=== PATIENT | female | born 1960 | race Caucasian/White ===

== ENCOUNTER 2024-12-21 10:41 | Emergency (ER) | payer BC, SELFPAY ==
[2024-12-21] VITALS (8 sets, daily range): BP systolic 113–139; BP diastolic 69–100; BMI 18.1
[2024-12-21 11:24] LABS: Urine Albumin Trace (Neg - Trace); Urine Bilirubin Negative (Negative); Urine Character Clear (Clear); Urine Color Yellow; Urine Glucose Negative (Negative); Urine Ketone Negative (Negative); Urine Leukocyte Trace (Negative); Urine Nitrite Negative (Negative); Urine Occult Blood Trace (Negative); Urine Specific Gravity 1.015 (<1.030); Urine Urobilinogen Negative (Neg - 1+)
--- NOTE | 2024-12-21 11:28 | ED.GENMED ---
History of Present Illness
General
Chief Complaint: Allergic Reaction
Source: patient
Exam Limitations: none
Time Seen by Provider: 12/21/24 11:11
Nursing documentation reviewed up to this point in time: agreed with
History of Present Illness
History of Present Illness:
64-year-old female lives at [facility], where she is rehabbing from back surgery has rheumatoid arthritis started new biologic shot in her abdomen yesterday, fairly soon after that developed a red rash flushing fast heart rate headache nausea
rash persist today but is overall feeling better no abdominal pain no lip swelling,
Past History
Past History
ED Past Medical History: COPD, HTN, Hyperthyroidism and Other
ED Past Surgical History: , Orthopedic and Other
Social History
Tobacco: Former smoker
Alcohol: None
Drug: None
Living: alone
Employment: Retired
Review of Systems
Review of Systems
All Other Systems: Not applicable
Constitutional: Denies fever or fatigue
EENT: Reports no symptoms
Respiratory: Denies cough or trouble breathing
Cardiac: Reports palpitations; Denies chest pain
ABD/GI: Reports nausea; Denies abdominal pain
Skin: Reports rash; Denies itching
Neurological: Reports headache
Endocrine: Reports no symptoms
Hematologic/Lymphatic: Reports no symptoms
Phy Exam
Physical Exam
Physical Exam:
Physical Exam
General: 64 female flushed, nontoxic normal voice
Neck: No tongue swelling
Heart: Tachycardia
Lungs: no acute respiratory distress. clear bilaterally
Abdomen: Not tender
Neuro: alert and oriented. no focal neurological deficits
Skin: Red raised rash face trunk arms
Psychiatric: well kept. interactive and cooperative
Extremities: no edema.
Course
Orders/Labs/Results
Orders:
Orders
12/21/24 10:59
Electrocardiogram (*1) Urgent
Reason for Study: Chest Pain
Cardiac Monitoring- Treatment ONCE
EKG- Treatment ONCE
IV Insert/Care/Rem.- Treatment PRN
O2 Therapy [RESP] Urgent
Titrate/Wean O2 to maintain O2 sat greater than (%): 90
Special Instructions: Maintain sats >/=90%
Pulse Ox/spot Check [RESP] Urgent
Quantity: 1
Special Instructions: ON ROOM AIR
12/21/24 11:06
Basic Metabolic Panel Urgent
Complete Blood Count/With Diff Urgent
Digoxin Urgent
Comment: ADD ON
Troponin I Urgent
12/21/24 11:10
Urinalysis Reflex To Culture Urgent
Date Specimen was Collected: 12/21/24
Time Specimen was Collected: 11:09
Urine Microscopic Reflex Cult Urgent
12/21/24 11:25
Dexamethasone Sod Phosphate [Decadron] 10 mg IV NOW STA
Diphenhydramine [Benadryl] 25 mg IV NOW STA
Famotidine [Pepcid] 20 mg IV NOW STA
12/21/24 11:27
0.9% Sodium Chloride 1000 ml [Nss] 1,000 ml IV BOLUS
12/21/24 11:28
Add On- LAB Urgent
Tests Added?: digoxin
Abnormal Lab Results
12/21/24 12/21/24
11:06 11:10
WBC 19.1 H 10^3/uL
(4.8-10.8)
MCHC 32.7 L g/dL
(33.0-37.0)
RDW 17.8 H %
(11.5-14.5)
Abs Immat Gran (auto) 2.2 H 10^3/uL
(0-0.05)
Absolute Neuts (auto) 15.7 H 10^3/uL
(1.4-6.5)
Absolute Lymphs (auto) 0.4 L 10^3/uL
(1.2-3.4)
Absolute Monos (auto) 0.8 H 10^3/uL
(0.1-0.6)
Immature Gran % 11.3 H %
(0-0.5)
Neutrophils % 82.0 H %
(42.2-75.2)
Lymphocytes % 2.3 L %
(20.5-51.1)
Chloride 95 L mmol/L
(98-107)
BUN 31 H mg/dl
(7-17)
Creatinine 0.4 L mg/dL
(0.6-1.0)
Glucose 159 H mg/dl
(70-99)
Calcium 8.0 L mg/dl
(8.4-10.2)
Ur Occult Blood Reflex Trace A
(Negative)
Leukocyte Esterase Rfl Trace A
(Negative)
Urine RBC 3-6 A /HPF
(0-2)
12/21/24 11:06
12/21/24 12:27
Vital Signs
Initial and Last Documented VS:
Initial Vital Signs
Temp Pulse Resp BP Pulse Ox
98.2 F 126 18 132/83 96
12/21/24 10:45 12/21/24 10:45 12/21/24 10:45 12/21/24 10:45 12/21/24 10:45
Last Documented Vital Signs
Temp Pulse Resp BP Pulse Ox
98.2 F 107 16 135/82 96
12/21/24 10:45 12/21/24 12:20 12/21/24 12:15 12/21/24 12:00 12/21/24 12:15
MDM/Problems Addressed
Differential Diagnosis Includes:
Hypersensitivity allergic reaction medication reaction idiopathic
MDM/Problems Addressed:
Rash
Chronic conditions affecting care:
Rheumatoid arthritis
Acute Exacerbation and/or Progression of Chronic Illness:
Rheumatoid arthritis
*Pulse Oximetry
Patient hypoxic: no
*EKG
Interpreted by ED Provider?: Yes
Interpretation: abnormal
Comparison EKG: no comparison EKG present
Heart Rate: 130
Rate: tachycardiac
Rhythm: sinus
Ischemia: non-specific ST changes
*Tractor Trailer Driver Interpretation
Rate: tachycardiac
Interpretation: abnormal
Heart Rate: 130
Rhythm: sinus
*Critical Care Note
Total Time (30-74mins, 75-104mins- exclusive of procedures): 6
Update Note
Update Note:
Update presumed allergic reaction greater than 12 hours old, fairly asymptomatic at this point we will give some steroids Benadryl H1 and H2 rachel touch base with pharmacy to update her allergies suspect she should not get the medication again
Update patient feeling better
ED Attending Note
-
Portions of this chart may have been created with voice recognition software.� Occasional wrong word or��sound alike� substitutions may have occurred due to the inherent limitations of voice recognition software.
Discharge Plan
Departure
Patient Disposition: Home (Routine Discharge)
Date of Disposition: 12/21/24
Time of Disposition: 12:46
Patient with high blood pressure during this ER visit?: No
Condition: Good
Discharge Problem:
Adverse effect of drug
Instructions: Adverse Drug Reactions, Adult (DC)
Prescriptions:
New
diphenhydramine HCl [Allergy Medication] 25 mg capsule
25 mg PO TID PRN (Reason: allergy symptoms) Qty: 20 0RF
No Action
prednisone 5 mg tablet
5 mg PO BID
tramadol 50 mg tablet
100 mg PO BID
potassium chloride 20 mEq tablet extended release
20 meq PO DAILY
ibuprofen 200 mg Tablet
200 mg PO Q6H PRN (Reason: mild pain)
nystatin 100,000 unit/mL Suspension
5 ml PO QID 10 Days Qty: 200 0RF
digoxin 250 mcg (0.25 mg) Tablet
250 mcg PO NOON 30 Days Qty: 30 0RF
pantoprazole 40 mg Tablet,Delayed Release (Dr/Ec)
40 mg PO DAILY 30 Days Qty: 30 0RF
metoprolol succinate 25 mg Tablet Extended Release 24 Hr
25 mg PO DAILY 30 Days Qty: 30 0RF
cefdinir 300 mg Capsule
300 mg PO Q12 5 Days Qty: 10 0RF
levothyroxine 112 mcg Tablet
112 mcg PO DAILY AT 0700 30 Days Qty: 30 0RF
white petrolatum [Hydrophor] 42 % Ointment
1 applic topical BIDPRN PRN (Reason: itching sites) 30 Days Qty: 100 0RF
triamcinolone acetonide 0.1 % Cream
1 applic topical BID 30 Days Qty: 1 0RF
hydrocodone-acetaminophen 5-300 mg tablet
1 tab PO Q4H PRN (Reason: pain) Qty: 20 0RF
Referrals:
Daniel Manning DO [Family Provider] - Next open appointment
Activity Restrictions/Additional Instructions:
Follow-up with your commercial agent and primary care provider
You should not receive the biologic medication again they gave you the reaction
Interventions
Interventions:
*Risk Screen - Suicide Last Done: 12/21/24 10:45
*General Assessment Last Done: 12/21/24 10:45
*Neglect/Abuse Screening Last Done: 12/21/24 10:45
ED- Fall Risk Assessment Last Done: 12/21/24 11:02
*ED COVID-19 Vaccine History Last Done: 12/21/24 11:01
ED- Cardiac Assessment Last Done: 12/21/24 11:02
ED- Pulmonary Assessment Last Done: 12/21/24 11:03
ED-Skin Assessment Last Done: 12/21/24 11:04
Discharge Date and Time
Print Language: SCOTTISH
[2024-12-21 11:38] LABS: Hematocrit 40.1 % (37.0-47.0); Hemoglobin 13.1 g/dL (12.0-16.0); Mean Corp Hgb Conc. 32.7 g/dL (33.0-37.0); Mean Corpuscular Volume 88.7 fL (81.0-99.0); Mean Platelet Volume 8.9 fL (7.4-10.4); Platelet Count 381 10^3/uL (130-400); Red Blood Cell Count 4.52 10^6/uL (4.20-5.40); Red Cell Dist. Width 17.8 % (11.5-14.5); White Blood Cell Count 19.1 10^3/uL (4.8-10.8)
[2024-12-21] MEDS: DECADRON 10 MG IV (11:41)
[2024-12-21] MEDS: PEPCID 20 MG IV (11:41)
[2024-12-21] MEDS: BENADRYL 25 MG IV (11:41)
[2024-12-21] MEDS: NSS 1000 IV (11:41)
[2024-12-21 11:45] LABS: Blood Urea Nitrogen 31 mg/dl (7-17); Carbon Dioxide 30 mmol/L (22-30); Chloride 95 mmol/L (98-107); Estimated Creatinine Clearance 70 ml/min; Glucose 159 mg/dl (70-99); Sodium 136 mmol/L (135-145); eGFR > 60.00
[2024-12-21 11:49] LABS: Troponin I 0.016 ng/ml
[2024-12-21 12:01] LABS: Urine Squamous Cell >30 /LPF (Few)
[2024-12-21 12:02] LABS: Urine Amorphous Seen
[2024-12-21 12:07] LABS: % Basophils 0.2 % (0-2); % Immature Granulocytes 11.3 % (0-0.5); % Lymphocytes 2.3 % (20.5-51.1); % Monocytes 4.2 % (1.7-9.3); Absolute Immature Granulocytes 2.2 10^3/uL (0-0.05); Absolute Lymphocytes 0.4 10^3/uL (1.2-3.4); Absolute Monocytes 0.8 10^3/uL (0.1-0.6); Absolute Neutrophils 15.7 10^3/uL (1.4-6.5); Nucleated Red Blood Cells % 0 %
[2024-12-21 12:55] LABS: Digoxin < 0.4 ng/ml (0.8-2.0)
[2024-12-21] MEDS: TYLENOL 650 MG PO (15:42)
== END 2024-12-21 19:01 | disposition home or self-care (01) ==
LOC: EMR 10:41
PROVIDERS: EMERGENCY PHYSICIAN Emergency Medicine; FAMILY PHYSICIAN Family Medicine
DX: T50.995A Adverse effect of other drugs, medicaments and biological substances, initial encounter (principal); L27.0 Generalized skin eruption due to drugs and medicaments taken internally; X58.XXXA Exposure to other specified factors, initial encounter; J44.9 Chronic obstructive pulmonary disease, unspecified; M06.9 Rheumatoid arthritis, unspecified; I10 Essential (primary) hypertension; Z87.891 Personal history of nicotine dependence
CPT/HCPCS: 96374; 96375; 96361; 99284; 80048; 80162; 81003; 81015; 84484; 85025; 93005

== ENCOUNTER 2024-12-23 23:11 | Inpatient (IN) | payer BC, MEDICARE, SELFPAY ==
[2024-12-23] VITALS (7 sets, daily range): BP systolic 126–159; BP diastolic 85–106
[2024-12-23 15:36] LABS: Lactic Acid 2.8 mmol/L (0.7-2.0)
[2024-12-23 15:44] LABS: ALT (SGPT) 56 U/L (0-35); AST (SGOT) 52 U/L (14-36); Albumin 3.4 g/dl (3.5-5.0); Alkaline Phosphatase 101 U/L (38-126); Blood Urea Nitrogen 28 mg/dl (7-17); Calcium 7.8 mg/dl (8.4-10.2); Carbon Dioxide 31 mmol/L (22-30); Chloride 99 mmol/L (98-107); Estimated Creatinine Clearance 75 ml/min; Glucose 116 mg/dl (70-99); Potassium 4.4 mmol/L (3.5-5.1); Sodium 137 mmol/L (135-145); Total Bilirubin 0.8 mg/dl (0.2-1.3); Total Protein 5.8 g/dl (6.3-8.2); eGFR > 60.00
[2024-12-23 15:59] LABS: % Basophils 0.4 % (0-2); % Immature Granulocytes 7.4 % (0-0.5); % Lymphocytes 1.7 % (20.5-51.1); % Monocytes 3.9 % (1.7-9.3); % Neutrophils 86.6 % (42.2-75.2); Absolute Basophils 0.1 10^3/uL (0-0.2); Absolute Immature Granulocytes 1.3 10^3/uL (0-0.05); Absolute Lymphocytes 0.3 10^3/uL (1.2-3.4); Absolute Monocytes 0.7 10^3/uL (0.1-0.6); Absolute Neutrophils 14.6 10^3/uL (1.4-6.5); Hematocrit 34.9 % (37.0-47.0); Hemoglobin 11.6 g/dL (12.0-16.0); Mean Corp Hgb Conc. 33.2 g/dL (33.0-37.0); Mean Corpuscular Hgb 29.5 pg (27.0-31.0); Mean Corpuscular Volume 88.8 fL (81.0-99.0); Mean Platelet Volume 9.1 fL (7.4-10.4); Nucleated Red Blood Cells % 0.1 %; Platelet Count 272 10^3/uL (130-400); Red Blood Cell Count 3.93 10^6/uL (4.20-5.40); Red Cell Dist. Width 17.3 % (11.5-14.5); White Blood Cell Count 16.8 10^3/uL (4.8-10.8)
[2024-12-23] MEDS: ULTRAM 50 MG PO (16:12)
--- NOTE | 2024-12-23 19:11 | ED.GENMED ---
History of Present Illness
<Dave Armas DO - Last Filed: 12/23/24 19:11>
General
Chief Complaint: Weakness
Time Seen by Provider: 12/23/24 14:39
<Jaquan Shay Jr., PA-C - Last Filed: 12/24/24 08:09>
General
Source: patient and alf
Exam Limitations: none
Nursing documentation reviewed up to this point in time: agreed with
History of Present Illness
History of Present Illness:
64-year-old female presenting to the emergency department today with concerns of feeling shaky weak and sleepy throughout the morning. Has had some stomach distention and some upper abdominal pain to the left upper right upper quadrant. Of note
patient recently was here for potential allergic reaction to her new biologic medications restarted on 2 days ago was treated as an allergy. That seemingly has been improved. Initially she was noted to have some shortness claims she does
chronically have shortness of breath due to vocal cord issues denies significant changes acutely.
Past History
<DO Naila Martinez Last Filed: 12/23/24 19:11>
Past History
ED Past Medical History: COPD, HTN, Hyperthyroidism and Other
ED Past Surgical History: , Orthopedic and Other
Social History
Tobacco: Former smoker
Alcohol: None
Drug: None
Living: alone
Employment: Retired
Review of Systems
<Jaquan Shay Jr., PA-C - Last Filed: 12/24/24 08:09>
Review of Systems
Allergies reviewed?: Yes
All Other Systems: ROS reviewed and negative except as documented in HPI and ROS
Phy Exam
<Jaquan Shay Jr., PA-C - Last Filed: 12/24/24 08:09>
Physical Exam
Physical Exam:
GENERAL: Alert , in no apparent distress
EYE: pupils equal and reactive
NECK: Supple, no significant adenopathy.
ENT: o/p clr, mmm.
CARDIAC: Regular rate and rhythm .
LUNGS: Clear breath sounds bilaterally, no acute respiratory distress, no wheezes/rales/rhonchi
ABDOMEN: Soft, without focal tenderness, no r/g, no cvat
NEUROLOGICAL: Alert and oriented, no focal neuro deficits
SKIN: Warm and dry, skin intact.
MUSCULOSKELETAL: No edema, well perfused.
PSYCH: Normal and appropriate interaction.
Course
<Dave Armas, DO - Last Filed: 12/23/24 19:11>
Orders/Labs/Results
Orders:
Orders
12/23/24 14:59
EKG [Electrocardiogram (*1)] Urgent
Reason for Study: Fatigue / Weakness
CT Abd/Pel (IV only)-DH only Urgent
Comment:
Reason For Exam: abd bloating pain to left side
EKG- Treatment ONCE
12/23/24 15:14
Complete Blood Count/With Diff Urgent
Comprehensive Metabolic Panel Urgent
Lactic Acid Urgent
12/23/24 16:07
Tramadol HCl [Ultram] 50 mg PO NOW STA
12/23/24 18:49
0.9% Sodium Chloride 1000 ml [Nss] 1,000 ml IV BOLUS
12/23/24 19:38
Blood Culture Q30M
ALBERTO Source: Blood/Venous
Specimen Description:
12/23/24 19:39
Cefepime HCl [Maxipime] 2,000 mg IV NOW STA
12/23/24 19:46
Blood Culture Q30M
ALBERTO Source: Blood/Venous
Specimen Description:
12/23/24 19:49
Sterile Water [Sterile Water For Injection] 10 ml .ROUTE .[facility]
12/23/24 20:13
Vancomycin [Vancocin] 1,250 mg 0.9% Sodium Chloride 250 ml [Nss] 250 ml IV NOW
12/23/24 20:54
Lactate Level [Lactic Acid] Urgent
Urinalysis Reflex To Culture Urgent
Date Specimen was Collected: 12/23/24
Time Specimen was Collected: 20:47
Urine Microscopic Reflex Cult Urgent
12/23/24 22:24
Admit/Transfer Patient As Directed
Co-Sign Provider:
Level of Care: Inpatient admission
Assign to:: Telemetry
Physician / Group: warren
Diagnosis: pneumonia
Reason for Telemetry: Arrhythmia
Date to Stop Telemetry: 12/26/24
Time to Stop Telemetry: 11:00
Reason for Hospitalization: pneumonia
Expected length of stay greater than two midnights?: Yes
ELOS- Estimated Length of Stay in days: 2
I certify the patient meets the requirements for IP care: Yes
PRN Pain Medication Management As Directed
May give lesser potent ordered pain med per pt: Yes
preference::
Protocol:: Medication orders for pain may be administered in a
manner that supports deferring to patient preference
when the pt is:
- Requesting an ordered lesser potent pain medication.
Least to most potent pain medications are defined
as: acetaminophen < NSAID < tramadol < opioids
(morphine, oxycodone, hydromorphone).
- Requesting a lesser dose of the same medication IF
ORDERED.
- Requesting a less intrusive route of administration
if both routes are prescribed by the provider (PO <
IV).
12/23/24 22:25
Code Status As Directed
Resuscitation Status: Full Code
12/23/24 22:34
CR Chest - 2 Views Urgent
Comment:
Reason For Exam: sweats
12/23/24 22:36
Troponin I Urgent
12/23/24 22:38
COVID-19 Antigen Urgent
Source: Nasal Swab
Influenza A+B Rapid Molecular Urgent
ALBERTO Source: Nasal Swab
Specimen Description:
12/24/24 00:18
0.9% Sodium Chloride 1000 ml [Nss] 1,000 ml IV 80 mls/hr
Acetaminophen [Tylenol] 650 mg PO Q4HPRN PRN
Albuterol Nebs [Ventolin Nebules] 2.5 mg INH R Q4HPRN PRN
Bisacodyl [Dulcolax] 10 mg RECTAL DAILYPRN PRN
Diazepam [Valium] 2 mg PO Q8HPRN PRN
Magnesium Hydroxide [Milk of Magnesia] 30 ml PO DAILYPRN PRN
Ondansetron Injectable [Zofran] 4 mg IV Q6HPRN PRN
Phosphate Enema [Fleet Phosphate Enema-Adult] 118 ml RECTAL DAILYPRN PRN
Tizanidine [Zanaflex] 4 mg PO DAILYPRN PRN
Tramadol HCl [Ultram] 50 mg PO Q6HPRN PRN
methocarbamol 500 mg PO Q8HPRN PRN
12/24/24 00:18
Echo 2D MMode Color/Doppler Routine
Reason for Study: pericardial effuson
Activity As Directed
Activity Level: As Tolerated
Vital Signs As Directed
Frequency: Per unit guidelines
DX Deep Vein Thrombosis Video Routine
12/24/24 02:00
CefTRIAXone [Rocephin] 1,000 mg IV Q24H
12/24/24 02:54
Oxycodone [Roxicodone] 5 mg PO Q4H PRN
12/24/24 04:00
Doxycycline Hyclate [Vibramycin] 100 mg 0.9% Sodium Chloride 250 ml [Nss] 250 ml IV Q12H
12/24/24 Breakfast
Regular
At Your Request: Full Participation
Does patient need a safe tray?: No
12/24/24 07:32
Complete Blood Count/With Diff IN AM
Comprehensive Metabolic Panel IN AM
12/24/24 08:00
Calcium Carbonate [Oscal Chandra 500] 500 mg PO DAILY
Gabapentin [Neurontin] 300 mg PO TID
Heparin 5,000 units SC Q12
Levothyroxine [Synthroid] 100 mcg PO DAILY
Lidocaine [Lidocaine 4% Patch] 2 patch TOPICAL DAILY
Apply Lidocaine patch(s) to:: left ri/aabdomen
Metoprolol [Lopressor] 50 mg PO BID
Nicotine [Nicoderm Transdermal] 21 mg TRANSDERM DAILY
Potassium Chloride [KCl] 20 meq PO DAILY
Prednisone [Deltasone] 20 mg PO DAILY
lubiprostone 8 mcg PO DAILY
12/24/24 22:00
Docusate W/Senna [Senokot-S] 1 tablet PO HS
12/25/24 08:00
Alendronate Sodium [Fosamax] 70 mg PO MO
12/26/24 11:00
DC Protocol for Telemetry ONCE
Abnormal Lab Results
12/23/24 12/23/24
15:14 20:54
WBC 16.8 H 10^3/uL
(4.8-10.8)
RBC 3.93 L 10^6/uL
(4.20-5.40)
Hgb 11.6 L g/dL
(12.0-16.0)
Hct 34.9 L %
(37.0-47.0)
RDW 17.3 H %
(11.5-14.5)
Abs Immat Gran (auto) 1.3 H 10^3/uL
(0-0.05)
Absolute Neuts (auto) 14.6 H 10^3/uL
(1.4-6.5)
Absolute Lymphs (auto) 0.3 L 10^3/uL
(1.2-3.4)
Absolute Monos (auto) 0.7 H 10^3/uL
(0.1-0.6)
Immature Gran % 7.4 H %
(0-0.5)
Neutrophils % 86.6 H %
(42.2-75.2)
Lymphocytes % 1.7 L %
(20.5-51.1)
Carbon Dioxide 31 H mmol/L
(22-30)
BUN 28 H mg/dl
(7-17)
Creatinine 0.3 L mg/dL
(0.6-1.0)
Glucose 116 H mg/dl
(70-99)
Lactic Acid 2.8 H mmol/L 2.8 H mmol/L
(0.7-2.0) (0.7-2.0)
Calcium 7.8 L mg/dl
(8.4-10.2)
AST 52 H U/L
(14-36)
ALT 56 H U/L
(0-35)
Total Protein 5.8 L g/dl
(6.3-8.2)
Albumin 3.4 L g/dl
(3.5-5.0)
Ur Occult Blood Reflex Trace A
(Negative)
Urine Bacteria (Reflex) Few A
(Negative)
12/23/24 15:14
12/23/24 15:14
Vital Signs
Initial and Last Documented VS:
Initial Vital Signs
Temp Pulse Resp BP Pulse Ox
98.6 F 83 18 134/92 97
12/23/24 14:30 12/23/24 14:30 12/23/24 14:30 12/23/24 14:30 12/23/24 14:30
Last Documented Vital Signs
Temp Pulse Resp BP Pulse Ox
97.9 F 93 18 130/87 100
12/24/24 03:55 12/24/24 03:55 12/24/24 03:55 12/24/24 03:55 12/24/24 03:55
<Jaquan Shay Jr., PA-C - Last Filed: 12/24/24 08:09>
Orders/Labs/Results
Orders:
Orders
12/23/24 14:59
EKG [Electrocardiogram (*1)] Urgent
Reason for Study: Fatigue / Weakness
CT Abd/Pel (IV only)-DH only Urgent
Comment:
Reason For Exam: abd bloating pain to left side
EKG- Treatment ONCE
12/23/24 15:14
Complete Blood Count/With Diff Urgent
Comprehensive Metabolic Panel Urgent
Lactic Acid Urgent
12/23/24 16:07
Tramadol HCl [Ultram] 50 mg PO NOW STA
12/23/24 18:49
0.9% Sodium Chloride 1000 ml [Nss] 1,000 ml IV BOLUS
12/23/24 19:38
Blood Culture Q30M
ALBERTO Source: Blood/Venous
Specimen Description:
12/23/24 19:39
Cefepime HCl [Maxipime] 2,000 mg IV NOW STA
12/23/24 19:46
Blood Culture Q30M
ALBERTO Source: Blood/Venous
Specimen Description:
12/23/24 19:49
Sterile Water [Sterile Water For Injection] 10 ml .ROUTE .[facility]
12/23/24 20:13
Vancomycin [Vancocin] 1,250 mg 0.9% Sodium Chloride 250 ml [Nss] 250 ml IV NOW
12/23/24 20:54
Lactate Level [Lactic Acid] Urgent
Urinalysis Reflex To Culture Urgent
Date Specimen was Collected: 12/23/24
Time Specimen was Collected: 20:47
Urine Microscopic Reflex Cult Urgent
12/23/24 22:24
Admit/Transfer Patient As Directed
Co-Sign Provider:
Level of Care: Inpatient admission
Assign to:: Telemetry
Physician / Group: warren
Diagnosis: pneumonia
Reason for Telemetry: Arrhythmia
Date to Stop Telemetry: 12/26/24
Time to Stop Telemetry: 11:00
Reason for Hospitalization: pneumonia
Expected length of stay greater than two midnights?: Yes
ELOS- Estimated Length of Stay in days: 2
I certify the patient meets the requirements for IP care: Yes
PRN Pain Medication Management As Directed
May give lesser potent ordered pain med per pt: Yes
preference::
Protocol:: Medication orders for pain may be administered in a
manner that supports deferring to patient preference
when the pt is:
- Requesting an ordered lesser potent pain medication.
Least to most potent pain medications are defined
as: acetaminophen < NSAID < tramadol < opioids
(morphine, oxycodone, hydromorphone).
- Requesting a lesser dose of the same medication IF
ORDERED.
- Requesting a less intrusive route of administration
if both routes are prescribed by the provider (PO <
IV).
12/23/24 22:25
Code Status As Directed
Resuscitation Status: Full Code
12/23/24 22:34
CR Chest - 2 Views Urgent
Comment:
Reason For Exam: sweats
12/23/24 22:36
Troponin I Urgent
12/23/24 22:38
COVID-19 Antigen Urgent
Source: Nasal Swab
Influenza A+B Rapid Molecular Urgent
ALBERTO Source: Nasal Swab
Specimen Description:
12/24/24 00:18
0.9% Sodium Chloride 1000 ml [Nss] 1,000 ml IV 80 mls/hr
Acetaminophen [Tylenol] 650 mg PO Q4HPRN PRN
Albuterol Nebs [Ventolin Nebules] 2.5 mg INH R Q4HPRN PRN
Bisacodyl [Dulcolax] 10 mg RECTAL DAILYPRN PRN
Diazepam [Valium] 2 mg PO Q8HPRN PRN
Magnesium Hydroxide [Milk of Magnesia] 30 ml PO DAILYPRN PRN
Ondansetron Injectable [Zofran] 4 mg IV Q6HPRN PRN
Phosphate Enema [Fleet Phosphate Enema-Adult] 118 ml RECTAL DAILYPRN PRN
Tizanidine [Zanaflex] 4 mg PO DAILYPRN PRN
Tramadol HCl [Ultram] 50 mg PO Q6HPRN PRN
methocarbamol 500 mg PO Q8HPRN PRN
12/24/24 00:18
Echo 2D MMode Color/Doppler Routine
Reason for Study: pericardial effuson
Activity As Directed
Activity Level: As Tolerated
Vital Signs As Directed
Frequency: Per unit guidelines
DX Deep Vein Thrombosis Video Routine
12/24/24 02:00
CefTRIAXone [Rocephin] 1,000 mg IV Q24H
12/24/24 02:54
Oxycodone [Roxicodone] 5 mg PO Q4H PRN
12/24/24 04:00
Doxycycline Hyclate [Vibramycin] 100 mg 0.9% Sodium Chloride 250 ml [Nss] 250 ml IV Q12H
12/24/24 Breakfast
Regular
At Your Request: Full Participation
Does patient need a safe tray?: No
12/24/24 07:32
Complete Blood Count/With Diff IN AM
Comprehensive Metabolic Panel IN AM
12/24/24 08:00
Calcium Carbonate [Oscal Chandra 500] 500 mg PO DAILY
Gabapentin [Neurontin] 300 mg PO TID
Heparin 5,000 units SC Q12
Levothyroxine [Synthroid] 100 mcg PO DAILY
Lidocaine [Lidocaine 4% Patch] 2 patch TOPICAL DAILY
Apply Lidocaine patch(s) to:: left ri/aabdomen
Metoprolol [Lopressor] 50 mg PO BID
Nicotine [Nicoderm Transdermal] 21 mg TRANSDERM DAILY
Potassium Chloride [KCl] 20 meq PO DAILY
Prednisone [Deltasone] 20 mg PO DAILY
lubiprostone 8 mcg PO DAILY
12/24/24 22:00
Docusate W/Senna [Senokot-S] 1 tablet PO HS
12/25/24 08:00
Alendronate Sodium [Fosamax] 70 mg PO MO
12/26/24 11:00
DC Protocol for Telemetry ONCE
Abnormal Lab Results
12/23/24 12/23/24
15:14 20:54
WBC 16.8 H 10^3/uL
(4.8-10.8)
RBC 3.93 L 10^6/uL
(4.20-5.40)
Hgb 11.6 L g/dL
(12.0-16.0)
Hct 34.9 L %
(37.0-47.0)
RDW 17.3 H %
(11.5-14.5)
Abs Immat Gran (auto) 1.3 H 10^3/uL
(0-0.05)
Absolute Neuts (auto) 14.6 H 10^3/uL
(1.4-6.5)
Absolute Lymphs (auto) 0.3 L 10^3/uL
(1.2-3.4)
Absolute Monos (auto) 0.7 H 10^3/uL
(0.1-0.6)
Immature Gran % 7.4 H %
(0-0.5)
Neutrophils % 86.6 H %
(42.2-75.2)
Lymphocytes % 1.7 L %
(20.5-51.1)
Carbon Dioxide 31 H mmol/L
(22-30)
BUN 28 H mg/dl
(7-17)
Creatinine 0.3 L mg/dL
(0.6-1.0)
Glucose 116 H mg/dl
(70-99)
Lactic Acid 2.8 H mmol/L 2.8 H mmol/L
(0.7-2.0) (0.7-2.0)
Calcium 7.8 L mg/dl
(8.4-10.2)
AST 52 H U/L
(14-36)
ALT 56 H U/L
(0-35)
Total Protein 5.8 L g/dl
(6.3-8.2)
Albumin 3.4 L g/dl
(3.5-5.0)
Ur Occult Blood Reflex Trace A
(Negative)
Urine Bacteria (Reflex) Few A
(Negative)
12/23/24 15:14
12/23/24 15:14
Vital Signs
Initial and Last Documented VS:
Initial Vital Signs
Temp Pulse Resp BP Pulse Ox
98.6 F 83 18 134/92 97
12/23/24 14:30 12/23/24 14:30 12/23/24 14:30 12/23/24 14:30 12/23/24 14:30
Last Documented Vital Signs
Temp Pulse Resp BP Pulse Ox
97.9 F 93 18 130/87 100
12/24/24 03:55 12/24/24 03:55 12/24/24 03:55 12/24/24 03:55 12/24/24 03:55
<Jaquan Shay Jr., PA-C - Last Filed: 12/24/24 08:09>
MDM/Problems Addressed
MDM/Problems Addressed:
64-year-old female presenting to the emergency department with vague symptoms of generalized weakness fatigue over the past few days worsening significantly today. On arrival vital signs are normal patient no obvious distress does describe mainly
abdominal pain to the upper abdomen has white count of 16.8 with left shift has had some elevated numbers in the past unclear if this could be related to patient's recent steroid use. Patient also started a new biologic for rheumatoid arthritis 2
days ago she did have a potential allergic reaction was treated for this. Otherwise her lactic acid was elevated 2 point raise concern for potential underlying infectious etiology. CT scan of the abdomen pelvis was ordered. There was potential
consolidation consistent with pneumonia. Concerning patient's immunocompromise elevated lactic acid and generalized symptoms plan to start IV antibiotics and admit for cultures as well as further monitoring.
<Jaquan Shay Jr., PA-C - Last Filed: 12/24/24 08:09>
*Critical Care Note
Total Time (30-74mins, 75-104mins- exclusive of procedures): Not Applicable
ED Attending Note
<Dave Armas DO - Last Filed: 12/23/24 19:11>
ED Attending Note
I performed the substantive portion of visit, reviewed & personally made and approve the management plan that is documented in note by myself or ERINN.: Yes
-
Portions of this chart may have been created with voice recognition software.� Occasional wrong word or��sound alike� substitutions may have occurred due to the inherent limitations of voice recognition software.
Discharge Plan
Departure
Patient Disposition: Admit
Date of Disposition: 12/23/24
Time of Disposition: 21:57
Admit to: Telemetry
Admit to doctor: Alexis
Presentation/result/management discussed w/ accepting MD/DO: Hospitalist
Patient with high blood pressure during this ER visit?: No
Condition: Good
Covid-19: Not Applicable
Discharge Problem:
Pneumonia
Interventions
Interventions:
*Risk Screen - Suicide Last Done: 12/23/24 14:30
*General Assessment Last Done: 12/23/24 14:30
*Neglect/Abuse Screening Last Done: 12/23/24 14:30
ED- Fall Risk Assessment Last Done: 12/23/24 18:38
*ED COVID-19 Vaccine History Last Done: 12/23/24 18:38
*Nursing Disposition Last Done: 12/24/24 00:10
ED- Cardiac Assessment Last Done: 12/23/24 20:05
ED- Neurological Assessment Last Done: 12/23/24 20:05
ED- Pulmonary Assessment Last Done: 12/23/24 20:05
Discharge Date and Time
Discharge Date/Time: 12/24/24 00:10
[2024-12-23] MEDS: NSS 1000 IV (19:23)
[2024-12-23] MEDS: MAXIPIME 2000 MG IV (19:54)
--- NOTE | 2024-12-23 20:13 | EDRN ---
Called pharmacy for vancomycin. Per Gladys SYED, repeat lactic to be drawn after pt finishes 1L NS
[2024-12-23] MEDS: VANCOCIN 275 MG IV (20:54)
[2024-12-23 21:05] LABS: Urine Albumin Negative (Neg - Trace); Urine Bilirubin Negative (Negative); Urine Character Clear (Clear); Urine Color Straw; Urine Glucose Negative (Negative); Urine Ketone Negative (Negative); Urine Leukocyte Negative (Negative); Urine Nitrite Negative (Negative); Urine Occult Blood Trace (Negative); Urine Urobilinogen Negative (Neg - 1+)
[2024-12-23 21:11] LABS: Urine Bacteria Few (Negative); Urine Red Blood Cell 0-2 /HPF (0-2); Urine Squamous Cell 16-20 /LPF (Few)
[2024-12-23 21:14] LABS: Lactic Acid 2.8 mmol/L (0.7-2.0)
--- NOTE | 2024-12-23 22:31 | HPS.HSE ---
Addendum entered and electronically signed by Maria Luisa Rockwell MD 12/23/24 23:41:
Patient recently had back surgery on November 06. No new back pain. Incision site appears normal without redness or warmth.
Original Note:
Family Physician
-
Family Physician: Daniel Manning
Chief Complaint
-
sweats
History of Present Illness
64-year-old female past medical history of Takotsubo cardiomyopathy, HFrEF, esophageal candidiasis, rheumatoid arthritis, COPD, hypothyroidism, presenting with feeling of shakiness, weakness and flushing of the face which started this morning. She
denies any chest pain. She has chronic shortness of breath due to vocal cord dysfunction from prior neck surgery. Shortness of breath is at baseline. She denies nausea or vomiting. She denies constipation at this time
She had been complaining of abdominal bloating for the past month. She had been seeing GI who gave her Linzess for constipation without improvement. They could not find any source for her abdominal bloating.
For the past week she has been having pain in the area of her left rib radiating to her back. Pain was sharp and electric-like and only occurs with movement during physical therapy. She denies any such pain currently.
She came to the emergency room 2 days ago after receiving a new biologic injection for rheumatoid arthritis the day prior. She developed a red rash and flushing tachycardia and headache and nausea. She came to the emergency room and treated with
antihistamine and dexamethasone with improvement.
She is a former smoker. She denies alcohol use.
Medical History
Past Medical History
Past Medical History: Reports Other (Takotsubo cardiomyopathy, HFrEF, esophageal candidiasis, rheumatoid arthritis, COPD, hypothyroidism)
Past Surgical History: Reports Other (, Orthopedic and Other)
Social History
Tobacco: Former Smoker
Alcohol: None
Drug: None
Family History
Family History: Not pertinent
Allergies / Home Medications
Allergies reflects when Allergies were last updated in [facility].
Home Medications with original date entered in [facility]
Allergy/Medication List:
Allergies
Allergy/AdvReac Type Severity Reaction Status Date / Time
abaloparatide [From Tymlos] Allergy rash, Verified 12/23/24 14:35
tachycardia,
chest
tightness,
headache
Home Medications
potassium chloride 20 mEq tablet,extended release 20 meq PO DAILY Supplement 09/13/22
tramadol 50 mg tablet 50 mg PO Q6HPRN PRN moderate pain 09/13/22
acetaminophen 325 mg tablet 650 mg PO Q4HPRN PRN fever greater than 100/mild pain 12/23/24
albuterol sulfate 2.5 mg/3 mL (0.083 %) solution for nebulization 2.5 mg inhalation R Q4HPRN PRN sob 12/23/24
alendronate 70 mg tablet 70 mg PO MO 12/23/24
bisacodyl 10 mg rectal suppository (Dulcolax (bisacodyl)) 10 mg [place] DAILYPRN PRN if MOM ineffective after 24 hours 12/23/24
calcium carbonate 500 mg PO DAILY 12/23/24
diazepam 2 mg tablet 2 mg PO Q8HPRN PRN anxiety 12/23/24
furosemide 20 mg tablet 20 mg PO DAILY 12/23/24
gabapentin 300 mg capsule 300 mg PO TID 12/23/24
levothyroxine 100 mcg tablet 100 mcg PO DAILY 12/23/24
lidocaine 4 % topical patch 2 patch topical DAILY left side ribs and back 12/23/24
lubiprostone 8 mcg capsule 8 mcg PO DAILY 12/23/24
magnesium hydroxide 400 mg/5 mL oral suspension (Milk of Magnesia) 2,400 mg PO DAILYPRN PRN if no bm in 3 days 12/23/24
methocarbamol 500 mg tablet 500 mg PO Q8HPRN PRN muscle spasm 12/23/24
metoprolol tartrate 50 mg tablet 50 mg PO BID 12/23/24
nicotine 21 mg/24 hr daily transdermal patch 1 patch transdermal DAILY 12/23/24
oxycodone 5 mg capsule 5 mg PO Q4H PRN moderate/severe pain 12/23/24
prednisone 20 mg tablet 20 mg PO DAILY 12/23/24
sennosides 8.6 mg-docusate sodium 50 mg tablet (Senna with Docusate Sodium) 1 tab-cap PO HS 12/23/24
sodium phosphates 19 gram-7 gram/118 mL enema (Fleet Enema) 118 ml [place] DAILYPRN PRN if dulcolax ineffective after 24 hr 12/23/24
tizanidine 4 mg tablet 4 mg PO DAILYPRN PRN muscle spasm 12/23/24
Review of Systems
-
History Source: Patient
A 12 point ROS was completed and negative except as noted: Yes
Constitutional: Reports No Symptoms
EENT: Reports No Symptoms
Respiratory: Reports See HPI
Cardiac: Reports No Symptoms
Abdomen/GI: Reports See HPI
: Reports No Symptoms
Musculoskeletal: Reports No Symptoms
Skin: Reports No Symptoms
Neurological: Reports No Symptoms
Endocrine: Reports No Symptoms
Hematologic/Lymphatic: Reports No Symptoms
Psych: Reports No Symptoms
Physical Exam
Vital Signs
Vital Signs
Temp Pulse Resp BP Pulse Ox
97.9 F 77 12 159/97 97
12/23/24 19:26 12/23/24 22:09 12/23/24 22:00 12/23/24 22:09 12/23/24 21:00
Physical Exam
General: Well Developed, Well Nourished and No Apparent Distress
HEENT: NormoCephalic, Moist mucous membranes and Atraumatic
Respiratory: Clear
Cardiac: S1/S2 and Regular Rhythm; No Murmur or Rub
GI: Soft, Non Tender, Normal Bowel Sounds and Distended; No Organomegaly
Rectal: Deferred by Provider
Musculoskeletal: No Clubbing, No Cyanosis and No Edema
Skin: No Rash
Neuro: Nonfocal/grossly intact
Laboratory Results
-
12/23/24 15:14
12/23/24 15:14
Laboratory Results
Lactic Acid 2.8 mmol/L (0.7-2.0) H 12/23/24 20:54
Total Bilirubin 0.8 mg/dl (0.2-1.3) 12/23/24 15:14
AST 52 U/L (14-36) H 12/23/24 15:14
ALT 56 U/L (0-35) H 12/23/24 15:14
Alkaline Phosphatase 101 U/L (38-126) 12/23/24 15:14
Data Reviewed
-
Lab Data: Labs Reviewed by me
Old Records: Reviewed
Impression/Plan
-
IMPRESSION:
PLAN:
# Suspected Pneumonia
-Leukocytosis
-Lactic acid of 2.8 but clinically not quite septic
-CT abdomen pelvis shows right lower lobe opacification with air bronchograms, atelectasis versus pneumonia with tiny right pleural effusion, left lower lobe subsegmental atelectasis tiny left pleural effusion
-Check COVID and influenza
-Check chest x-ray
-Blood cultures pending
-IV fluids
-Given vancomycin/cefepime, switch to ceftriaxone/doxycycline
# Mild pericardial thickening versus pericardial effusion
-Clinically history not suggestive of pericarditis
-EKG shows normal sinus rhythm, LVH, possible left atrial enlargement
-Troponin pending
-Check echocardiogram
# Recent left abdomen/rib pain radiating to back
-Not present currently, only occurs with movement
-Seems to be musculoskeletal/costochondritis
-Continue lidocaine patch
# Chronic abdominal bloating unclear etiology
-Has been following up with GI with no improvement with Linzess
History of Takotsubo cardiomyopathy/HFrEF
-Hold Lasix
-Continue metoprolol
Chronic dyspnea secondary to vocal cord dysfunction from prior neck surgery
History of esophageal candidiasis
Rheumatoid arthritis
-Continue gabapentin, methocarbamol, tizanidine, tramadol
-Continue oxycodone
-Continue prednisone
COPD
Hypothyroidism
-Continue levothyroxine
Constipation
-Not currently constipated
-Continue lubiprostone
History of alcohol/Percocet overuse
Anxiety/depression
-Continue diazepam
Osteoporosis
-Continue alendronate
Former smoker
-Continue nicotine patch
Full code
DVT prophylaxis�heparin
Regular diet
[2024-12-23 22:58] LABS: COVID-19 Antigen Negative (Negative)
[2024-12-23 23:07] LABS: Troponin I < 0.012 ng/ml
[2024-12-24] VITALS (7 sets, daily range): BP systolic 114–159; BP diastolic 69–98; BMI 18.3
--- NOTE | 2024-12-24 01:06 | PTCARENOTE ---
Pt admitted to floor from ED. Ambulated to bed with assistx2. AAox3, VSS. NSR on the monitor. Oriented to room. Call varma within reach.
[2024-12-24] MEDS: ULTRAM 50 MG PO ×4 (01:15→21:03)
[2024-12-24] MEDS: STERILE WATER FOR INJECTION 10 ML IV (02:11)
[2024-12-24] MEDS: ROCEPHIN 1000 MG IV (02:11)
[2024-12-24] MEDS: NSS 1000 IV ×2 (03:30→21:02)
[2024-12-24] MEDS: VIBRAMYCIN 260 MG IV ×2 (03:40→16:05)
[2024-12-24 07:58] LABS: Lactic Acid 1.2 mmol/L (0.7-2.0)
[2024-12-24] MEDS: LIDOCAINE 4% PATCH 2 PATCH TOPICAL (08:22)
[2024-12-24] MEDS: KCL 20 MEQ PO (08:22)
[2024-12-24] MEDS: DELTASONE 20 MG PO (08:22)
[2024-12-24] MEDS: NEURONTIN 300 MG PO ×3 (08:22→21:03)
[2024-12-24] MEDS: OSCAL CAL 500 500 MG PO (08:22)
[2024-12-24] MEDS: HEPARIN 5000 UNITS SC ×2 (08:23→20:46)
[2024-12-24] MEDS: LOPRESSOR 50 MG PO ×2 (08:23→20:46)
[2024-12-24] MEDS: SYNTHROID 100 MCG PO (08:24)
[2024-12-24 08:30] LABS: ALT (SGPT) 65 U/L (0-35); AST (SGOT) 43 U/L (14-36); Albumin 3.5 g/dl (3.5-5.0); Alkaline Phosphatase 145 U/L (38-126); Blood Urea Nitrogen 20 mg/dl (7-17); Calcium 7.4 mg/dl (8.4-10.2); Carbon Dioxide 27 mmol/L (22-30); Chloride 99 mmol/L (98-107); Estimated Creatinine Clearance 70 ml/min; Glucose 61 mg/dl (70-99); Potassium 3.6 mmol/L (3.5-5.1); Sodium 135 mmol/L (135-145); Total Bilirubin 0.8 mg/dl (0.2-1.3); Total Protein 5.8 g/dl (6.3-8.2); eGFR > 60.00
[2024-12-24 09:04] LABS: Hemoglobin 12.2 g/dL (12.0-16.0); Mean Corp Hgb Conc. 33.9 g/dL (33.0-37.0); Mean Corpuscular Hgb 29.6 pg (27.0-31.0); Mean Corpuscular Volume 87.4 fL (81.0-99.0); Mean Platelet Volume 8.9 fL (7.4-10.4); Platelet Count 249 10^3/uL (130-400); Red Blood Cell Count 4.12 10^6/uL (4.20-5.40); Red Cell Dist. Width 17.7 % (11.5-14.5); White Blood Cell Count 16.2 10^3/uL (4.8-10.8)
[2024-12-24 09:58] LABS: % Basophils 0.7 % (0-2); % Eosinophils 0.2 % (0-6); % Immature Granulocytes 7.6 % (0-0.5); % Lymphocytes 7.6 % (20.5-51.1); % Monocytes 8.1 % (1.7-9.3); % Neutrophils 75.8 % (42.2-75.2); Absolute Basophils 0.1 10^3/uL (0-0.2); Absolute Immature Granulocytes 1.2 10^3/uL (0-0.05); Absolute Lymphocytes 1.2 10^3/uL (1.2-3.4); Absolute Monocytes 1.3 10^3/uL (0.1-0.6); Absolute Neutrophils 12.3 10^3/uL (1.4-6.5); Nucleated Red Blood Cells % 0 %
--- NOTE | 2024-12-24 12:26 | W.PN.HOSP.TC ---
Today's Communication/Plan
-
Continue antibiotics
Check procalcitonin
Check BNP
Check echocardiogram
Assessment / Plan
Assessment / Plan
#Nonspecific general feeling of unwell. Recent allergic reaction to new biological agent for RA.
With abnormal RLL opacity and leukocytosis - Suspected Pneumonia
-Leukocytosis which could be sec to infection vs steorids
-Lactic acid of 2.8 but clinically not quite septic
-CT abdomen pelvis shows right lower lobe opacification with air bronchograms, atelectasis versus pneumonia with tiny right pleural effusion, left lower lobe subsegmental atelectasis tiny left pleural effusion
-Neg COVID and influenza
- chest x-ray no acute cardiopulm diease
-Blood cultures pending
- CW ceftriaxone/doxycycline till cx data . Check procal
- Also check BNP with bilateral small effusions
# Mild pericardial thickening versus pericardial effusion
-Clinically history not suggestive of pericarditis
-EKG shows normal sinus rhythm, LVH, possible left atrial enlargement
-Troponin neg
-Check echocardiogram
# Recent left abdomen/rib pain radiating to back
-Not present currently, only occurs with movement
-Seems to be musculoskeletal/costochondritis
-Continue lidocaine patch
# Chronic abdominal bloating unclear etiology
-Has been following up with GI with no improvement with Linzess
History of Takotsubo cardiomyopathy/HFrEF
-Hold Lasix
-Continue metoprolol
Chronic dyspnea secondary to vocal cord dysfunction from prior neck surgery
History of esophageal candidiasis
Rheumatoid arthritis
-Continue gabapentin, methocarbamol, tizanidine, tramadol
-Continue oxycodone
-Continue prednisone
COPD
Hypothyroidism
-Continue levothyroxine
Constipation
-Not currently constipated
-Continue lubiprostone
History of alcohol/Percocet overuse
Anxiety/depression
-Continue diazepam
Osteoporosis
-Continue alendronate
Former smoker
-Continue nicotine patch
Full code
DVT prophylaxis�heparin
Regular diet
Anticipated Discharge: > 48 hours
Subjective/Interval History
-
Date of Service: December 24, 2024
Patient is known to have rheumatoid arthritis was Orencia for a while which stopped working so went on a new biologic agent this week on Wednesday and had a bad allergic reaction for which she came to the ER. She felt like heart was pounding ,she
was sweating and she had a rash. Got Benadryl and steroids and was discharged back to rehab where she is currently at.
Yesterday she was not feeling well again. She thought she had another rash from neck to the head but not itchy. Currently resolved. No rash anywhere else. Rehab people put on oxygen she felt better .she was not sure why she was sent. Rehab
center wanted her to get checked out.
She has always jerome cheeks from steroids. She also has a chronic shortness of breath from vocal cord dysfunction.
This morning she is not complaining of any specific symptoms. Denies any cough, fever or chills. No sore throat. No prior history of pneumonias. Denies history of prior cardiac disease.
Objective Data
-
Labs:
Laboratory Results
12/24/24
07:32
WBC 16.2 H
Hgb 12.2
Hct 36.0 L
Plt Count 249
Sodium 135
Potassium 3.6
Chloride 99
Carbon Dioxide 27
BUN 20 H
Creatinine 0.4 L
Glucose 61 L
Calcium 7.4 L
Total Bilirubin 0.8
AST 43 H
ALT 65 H
Alkaline Phosphatase 145 H
Vital Signs:
Vital Signs
Temp Pulse Resp BP Pulse Ox
97.7 F 84 16 114/79 94
12/24/24 11:36 12/24/24 11:36 12/24/24 11:36 12/24/24 11:36 12/24/24 11:36
I&O
12/23/24 12/24/24 12/25/24
06:59 06:59 06:59
Intake Total 490 / 490
Balance 490 / 490
Review of Systems
-
Respiratory: Reports Trouble Breathing (Chronic from vocal cord dysfunction)
Cardiac: Denies Chest Pain
Abdomen/GI: Denies Abdominal Pain, Nausea or Vomiting
Neuro: Denies Dizzy
Physical Exam
-
General: Comfortable
HEENT: Moist Mucous Membranes
Respiratory: Crackles (Bibasal) and Non Labored Respirations; Negative Wheezes or Accessory Resp Muscle Use
Cardiac: Regular Rhythm and S1/S2
GI: Soft, Nontender, Nondistended and Normal Bowel Sounds
Skin: Other (skin purpura in general from steroids); Negative Rash
Neuro: AO x 3 and No Motor Deficits; Negative Tremors
Psych: Calm; Negative Confused
Data Reviewed
-
Labs: Labs Reviewed by me
[2024-12-24 13:29] LABS: NT-proBNP 776 pg/ml
[2024-12-24 14:13] LABS: Procalcitonin < 0.05 ng/ml (0.0-0.25)
--- NOTE | 2024-12-24 15:39 | CM ---
Patient seen at bedside
IA completed
Dx: pneumonia
PMH: Takotsubo cardiomyopathy, HF, esophageal candidiasis, rheumatoid arthritis, COPD, hypothyroidism
Lives alone in a 3 story home, 2 steps to enter, flight to 2nd floor. States she was staying on 1st floor
Patient stated she had back surgery Nov [address] [facility]
States she was at the ED on Wed and treated for allergic reaction from RA injection & sent back to [facility]
PLOF: Independent, states does not use device
DME: Walker, cane, shower chair, denies home
Has had [facility] in past, came to from [facility]
Referral placed in [facility] to [facility]
PCP: Daniel Manning
Pharmacy: [facility]
PLAN: Return to [facility] when medically stable
[2024-12-24] MEDS: SENOKOT-S 1 TABLET PO (21:03)
[2024-12-25] MEDS: STERILE WATER FOR INJECTION 10 ML IV (01:01)
[2024-12-25] MEDS: ROCEPHIN 1000 MG IV (01:01)
[2024-12-25] MEDS: VIBRAMYCIN 260 MG IV (03:05)
[2024-12-25 03:16] VITALS: BP 134/81
[2024-12-25 07:51] VITALS: BP 130/80
[2024-12-25 09:16] LABS: Hematocrit 34.2 % (37.0-47.0); Hemoglobin 11.6 g/dL (12.0-16.0); Mean Corp Hgb Conc. 33.9 g/dL (33.0-37.0); Mean Corpuscular Hgb 29.5 pg (27.0-31.0); Platelet Count 198 10^3/uL (130-400); Red Blood Cell Count 3.93 10^6/uL (4.20-5.40); Red Cell Dist. Width 17.4 % (11.5-14.5); White Blood Cell Count 19.9 10^3/uL (4.8-10.8)
[2024-12-25] MEDS: ULTRAM 50 MG PO ×3 (09:20→22:51)
[2024-12-25] MEDS: LIDOCAINE 4% PATCH 2 PATCH TOPICAL (09:21)
[2024-12-25] MEDS: HEPARIN 5000 UNITS SC ×2 (09:22→21:03)
[2024-12-25] MEDS: KCL 20 MEQ PO (09:23)
[2024-12-25] MEDS: SYNTHROID 100 MCG PO (09:23)
[2024-12-25] MEDS: NEURONTIN 300 MG PO ×3 (09:23→21:02)
[2024-12-25] MEDS: OSCAL CAL 500 500 MG PO (09:24)
[2024-12-25] MEDS: LOPRESSOR 50 MG PO ×2 (09:24→21:02)
[2024-12-25] MEDS: FOSAMAX 70 MG PO (09:25)
[2024-12-25] MEDS: DELTASONE 20 MG PO (09:25)
[2024-12-25] MEDS: NSS 1000 IV (09:26)
[2024-12-25 10:22] LABS: ALT (SGPT) 47 U/L (0-35); AST (SGOT) 26 U/L (14-36); Albumin 3.2 g/dl (3.5-5.0); Alkaline Phosphatase 123 U/L (38-126); Blood Urea Nitrogen 14 mg/dl (7-17); Calcium 7.5 mg/dl (8.4-10.2); Carbon Dioxide 24 mmol/L (22-30); Chloride 101 mmol/L (98-107); Estimated Creatinine Clearance 70 ml/min; Glucose 72 mg/dl (70-99); Potassium 3.3 mmol/L (3.5-5.1); Sodium 134 mmol/L (135-145); Total Bilirubin 0.9 mg/dl (0.2-1.3); Total Protein 5.4 g/dl (6.3-8.2); eGFR > 60.00
[2024-12-25 11:07] VITALS: BP 130/80
--- NOTE | 2024-12-25 13:46 | CM ---
Chart reviewed and patient was at skilled placement [facility], patient will need PT/OT evaluations to see if she need to return to skilled placement or return to home.
Plan; Await PT/OT evaluations to assist with discharge planning.
[2024-12-25 15:02] VITALS: BP 131/75
--- NOTE | 2024-12-25 15:50 | W.PN.HOSP.TC ---
Today's Communication/Plan
-
oral/IV abx
likely DC in 24 hours
Assessment / Plan
Assessment / Plan
Assessment:
Nonspecific general feeling of unwell. Recent allergic reaction to new biological agent for RA
- CT Abd: Right lower lobe opacification with air bronchograms, atelectasis versus pneumonia with tiny right pleural effusion. Left lower lobe subsegmental atelectasis and tiny left pleural effusion. Mild pericardial thickening versus small
pericardial effusion. Sigmoid diverticulosis, limited in evaluation due to lack of oral contrast and beam hardening artifact. No intestinal obstruction or free air.
- CT chest: There is a tiny bilateral pleural effusions. There is mild bibasilar consolidation. There is mild left lower lobe, mild right upper lobe and mild right lower lobe atelectasis versus scarring. no PE.
- continue empiric Rocephin, Doxy. Noted negative procalc although with recent usage of biological agent, could be altering lab result
- BNP low, no evidence of CHF
Mild pericardial thickening versus pericardial effusion on CT
- Echo with trace pericardial effusion, Normal LV size and function, EF 55-60%. Mild basal septal hypertrophy. Normal right ventricular size and function. Mild tricuspid regurgitation. Estimated pulmonary artery pressure of 33 mmHg assuming a right
atrial pressure of 3 mmHg.
- Clinically history not suggestive of pericarditis
- EKG shows normal sinus rhythm, LVH, possible left atrial enlargement
- Troponin neg
Recent left abdomen/rib pain radiating to back
- Not present currently, only occurs with movement
- Seems to be musculoskeletal/costochondritis
- continue lidocaine patch
Chronic abdominal bloating unclear etiology
- Has been following up with GI with no improvement with Linzess
History of Takotsubo cardiomyopathy/HFrEF
- Hold Lasix
- continue metoprolol
Chronic dyspnea secondary to vocal cord dysfunction from prior neck surgery
History of esophageal candidiasis
Rheumatoid arthritis
- Continue gabapentin, methocarbamol, tizanidine, tramadol
- Continue oxycodone
- Continue prednisone
COPD
Hypothyroidism
- Continue levothyroxine
Constipation
- Not currently constipated
- Continue lubiprostone
History of alcohol/Percocet overuse
Anxiety/depression
- Continue diazepam
Osteoporosis
- Continue alendronate
Former smoker
- Continue nicotine patch
Hypokalemia
- replete prn
DVT ppx: Heparin
Code: Full
Anticipated Discharge: Within 24 hours
Subjective/Interval History
-
Date of Service: December 25, 2024
no new complaints presently
Objective Data
-
Labs:
Laboratory Results
12/25/24
09:04
WBC 19.9 H
Hgb 11.6 L
Hct 34.2 L
Plt Count 198 D
Sodium 134 L
Potassium 3.3 L
Chloride 101
Carbon Dioxide 24
BUN 14
Creatinine 0.3 L
Glucose 72
Calcium 7.5 L
Total Bilirubin 0.9
AST 26
ALT 47 H
Alkaline Phosphatase 123
Vital Signs:
Vital Signs
Temp Pulse Resp BP Pulse Ox
98.3 F 89 20 131/75 93
12/25/24 15:02 12/25/24 15:02 12/25/24 15:02 12/25/24 15:02 12/25/24 15:02
I&O
12/24/24 12/25/24 12/26/24
06:59 06:59 06:59
Intake Total 1000 / 1000
Balance 1000 / 1000
Physical Exam
-
General: No Apparent Distress
HEENT: Normocephalic and Atraumatic
Respiratory: Negative Wheezes
Cardiac: Regular Rhythm and S1/S2
GI: Soft and Nontender
Musculoskeletal: No Edema
Neuro: AO x 3
Psych: Calm
Data Reviewed
-
Total Time Spent with Patient (in minutes): 41
Labs: Labs Reviewed by me
[2024-12-25] MEDS: ROXICODONE 5 MG PO ×2 (16:54→21:01)
[2024-12-25 19:45] VITALS: BP 140/86
[2024-12-25] MEDS: VIBRAMYCIN 100 MG PO (21:01)
[2024-12-25] MEDS: SENOKOT-S 1 TABLET PO (21:02)
[2024-12-25 23:23] VITALS: BP 133/81
[2024-12-26] VITALS (7 sets, daily range): BP systolic 109–157; BP diastolic 65–98; PULSE 80; O2SAT 99
[2024-12-26] MEDS: STERILE WATER FOR INJECTION 10 ML IV (02:21)
[2024-12-26] MEDS: ROCEPHIN 1000 MG IV (02:21)
[2024-12-26] MEDS: HEPARIN 5000 UNITS SC (08:18)
[2024-12-26] MEDS: KCL 20 MEQ PO (08:18)
[2024-12-26] MEDS: SYNTHROID 100 MCG PO (08:18)
[2024-12-26] MEDS: NEURONTIN 300 MG PO ×2 (08:19→15:35)
[2024-12-26] MEDS: OSCAL CAL 500 500 MG PO (08:19)
[2024-12-26] MEDS: DELTASONE 20 MG PO (08:19)
[2024-12-26] MEDS: LOPRESSOR 50 MG PO (08:19)
[2024-12-26] MEDS: VIBRAMYCIN 100 MG PO (08:20)
[2024-12-26] MEDS: LIDOCAINE 4% PATCH 2 PATCH TOPICAL (08:22)
[2024-12-26 08:53] LABS: Hematocrit 34.6 % (37.0-47.0); Hemoglobin 11.6 g/dL (12.0-16.0); Mean Corp Hgb Conc. 33.5 g/dL (33.0-37.0); Mean Corpuscular Hgb 29.2 pg (27.0-31.0); Mean Corpuscular Volume 87.2 fL (81.0-99.0); Mean Platelet Volume 9.9 fL (7.4-10.4); Platelet Count 213 10^3/uL (130-400); Red Blood Cell Count 3.97 10^6/uL (4.20-5.40); White Blood Cell Count 15.1 10^3/uL (4.8-10.8)
[2024-12-26 09:00] LABS: ALT (SGPT) 38 U/L (0-35); AST (SGOT) 23 U/L (14-36); Albumin 3.1 g/dl (3.5-5.0); Alkaline Phosphatase 94 U/L (38-126); Blood Urea Nitrogen 26 mg/dl (7-17); Carbon Dioxide 23 mmol/L (22-30); Chloride 105 mmol/L (98-107); Estimated Creatinine Clearance 70 ml/min; Glucose 84 mg/dl (70-99); Potassium 3.8 mmol/L (3.5-5.1); Sodium 135 mmol/L (135-145); Total Bilirubin 0.4 mg/dl (0.2-1.3); Total Protein 5.4 g/dl (6.3-8.2); eGFR > 60.00
[2024-12-26] MEDS: ROXICODONE 5 MG PO ×2 (09:58→14:29)
--- NOTE | 2024-12-26 09:59 | PN.CDI ---
CDI
- -
CDI:
Physician Documentation Request
Admit Date: 12/23/24 23:11
Dear Doctor Alfredo,
Please review the following and provide your response in the progress notes.
Clinical Indicators:
Height: 5 ft 4 inches
Weight:106
Other Clinical Notes:12/25 note states Current BW: (12/24) 106 lbs 5 oz BMI: 18.2 (underweight)
If possible, please provide an associated diagnosis related to the abnormal BMI:
BMI < or = to 19
Underweight
Weight Loss
Cachectic
Anorexia
- BMI is not significant
- Other
Use of terms such as suspected, likely, concern for, or probable (associated with a specific diagnosis that is being evaluated, monitored, or treated as if it exists) are acceptable and can be coded in the inpatient setting, when documented at the
time of discharge.
Thank you,
Marilou Kohler RN, BSN
CDI Specialist
tiger text
Please use your independent medical judgment in providing your response.
[2024-12-26] MEDS: ULTRAM 50 MG PO ×2 (11:29→18:02)
--- NOTE | 2024-12-26 12:55 | CM ---
PT/OT evaluated pt and is recommending skilled rehab. Per hospitalist, pt is wanting to go home w/ HH services
CM met w/ pt bedside to discuss PT evaluation. Pt stated she was admitted from [facility] and does not want to return to facility and does not wish to explore another rehab. Pt is adamant about wanting to d/c home and is agreeable to [facility] as she has used them in the past.
CM made referral to [facility]'s via [facility].
Per pt, she has a friend that will be able to transport her home later tonight
Plan: Home w/ Graciela MELENDEZ
--- NOTE | 2024-12-26 13:46 | W.PN.HOSP.TC ---
Today's Communication/Plan
-
dc to home/VN (patient refusing SNF despite therapy recs)
Assessment / Plan
Assessment / Plan
Assessment:
Nonspecific general feeling of unwell. Recent allergic reaction to new biological agent for RA
- CT Abd: Right lower lobe opacification with air bronchograms, atelectasis versus pneumonia with tiny right pleural effusion. Left lower lobe subsegmental atelectasis and tiny left pleural effusion. Mild pericardial thickening versus small
pericardial effusion. Sigmoid diverticulosis, limited in evaluation due to lack of oral contrast and beam hardening artifact. No intestinal obstruction or free air.
- CT chest: There is a tiny bilateral pleural effusions. There is mild bibasilar consolidation. There is mild left lower lobe, mild right upper lobe and mild right lower lobe atelectasis versus scarring. no PE.
- dc on Cefdinir/doxy x 10 total days. Noted negative procalc although with recent usage of biological agent, could be altering lab result
- BNP low, no evidence of CHF
Mild pericardial thickening versus pericardial effusion on CT
- Echo with trace pericardial effusion, Normal LV size and function, EF 55-60%. Mild basal septal hypertrophy. Normal right ventricular size and function. Mild tricuspid regurgitation. Estimated pulmonary artery pressure of 33 mmHg assuming a right
atrial pressure of 3 mmHg.
- Clinically history not suggestive of pericarditis
- EKG shows normal sinus rhythm, LVH, possible left atrial enlargement
- Troponin neg
Recent left abdomen/rib pain radiating to back
- Not present currently, only occurs with movement
- Seems to be musculoskeletal/costochondritis
- continue lidocaine patch
Chronic abdominal bloating unclear etiology
- Has been following up with GI with no improvement with Linzess
History of Takotsubo cardiomyopathy/HFrEF
- resume Lasix
- continue metoprolol
Chronic dyspnea secondary to vocal cord dysfunction from prior neck surgery
History of esophageal candidiasis
Rheumatoid arthritis
- Continue gabapentin, methocarbamol, tizanidine, tramadol
- Continue oxycodone
- Continue prednisone
COPD
Hypothyroidism
- Continue levothyroxine
Constipation
- Not currently constipated
- Continue lubiprostone
History of alcohol/Percocet overuse
Anxiety/depression
- Continue diazepam
Osteoporosis
- Continue alendronate
Former smoker
- Continue nicotine patch
Hypokalemia
- replete prn
underweight
DVT ppx: Heparin
Code: Full
More than 30 minutes spent in discharge including
Final examination of the patient
Summarizing hospital stay
Instructions for continuing care to all relevant caregivers
Preparation of discharge records, prescriptions, and referral forms
Total time spent (in minutes): 42
Anticipated Discharge: Today
Subjective/Interval History
-
Date of Service: December 26, 2024
reports chronic L chest/rib pain from RA
no new complaints
Objective Data
-
Labs:
Laboratory Results
12/26/24
07:29
WBC 15.1 H
Hgb 11.6 L
Hct 34.6 L
Plt Count 213
Sodium 135
Potassium 3.8
Chloride 105
Carbon Dioxide 23
BUN 26 H
Creatinine 0.4 L
Glucose 84
Calcium 8.0 L
Total Bilirubin 0.4
AST 23
ALT 38 H
Alkaline Phosphatase 94
Vital Signs:
Vital Signs
Temp Pulse Resp BP Pulse Ox
98.1 F 77 18 123/79 94
12/26/24 10:57 12/26/24 10:57 12/26/24 10:57 12/26/24 10:57 12/26/24 10:57
I&O
12/25/24 12/26/24 12/27/24
06:59 06:59 06:59
Intake Total 1000 / 1000 1320 / 1320
Balance 999 / 999 1320 / 132
Physical Exam
-
General: No Apparent Distress
HEENT: Normocephalic and Atraumatic
Respiratory: Negative Wheezes
Cardiac: Regular Rhythm and S1/S2
GI: Soft and Nontender
Musculoskeletal: No Edema
Neuro: AO x 3
Hematologic / Lymphatic: No Lymphadenopathy
Psych: Calm
Data Reviewed
-
Total Time Spent with Patient (in minutes): 42
Labs: Labs Reviewed by me
--- NOTE | 2024-12-26 14:06 | W.DS.TRANS ---
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
-
Discharge Instructions:
Discharge Diagnosis/Procedures pneumonia, chronic pain from RA
Diet Regular
Activity As tolerated
Bathing Restrictions None
Other Services VN,PT,OT
Instructions:
Stand-Alone Forms:
Changes to Home Medications: No
Discharge Medications:
DC Medications w/original date entered in [employer]
acetaminophen 325 mg tablet 650 mg PO Q4HPRN PRN fever greater than 100/mild pain 12/23/24
bisacodyl 10 mg rectal suppository (Dulcolax (bisacodyl)) 10 mg [place] DAILYPRN PRN if MOM ineffective after 24 hours 12/23/24
calcium carbonate 500 mg PO DAILY Supplement 12/23/24
magnesium hydroxide 400 mg/5 mL oral suspension (Milk of Magnesia) 2,400 mg PO DAILYPRN PRN if no bm in 3 days 12/23/24
sennosides 8.6 mg-docusate sodium 50 mg tablet (Senna with Docusate Sodium) 1 tab-cap PO HS Gastrointestinal Issue 12/23/24
sodium phosphates 19 gram-7 gram/118 mL enema (Fleet Enema) 118 ml [place] DAILYPRN PRN if dulcolax ineffective after 24 hr 12/23/24
albuterol sulfate 2.5 mg/3 mL (0.083 %) solution for nebulization 2.5 mg (3 mL) inhalation R Q4HPRN PRN sob #75 mL 12/26/24
alendronate 70 mg tablet 70 mg PO MO BONE HEALTH #3 tabs 12/26/24
cefdinir 300 mg capsule 300 mg PO BID #16 caps 12/26/24
doxycycline hyclate 100 mg capsule 100 mg PO Q12 #16 caps 12/26/24
furosemide 20 mg tablet 20 mg PO DAILY Fluid Retention/Swelling #30 tabs 12/26/24
gabapentin 300 mg capsule 300 mg PO TID Neurological Condition #30 caps 12/26/24
levothyroxine 100 mcg tablet 100 mcg PO DAILY Thyroid #30 tabs 12/26/24
lidocaine 4 % topical patch 2 patch topical DAILY left side ribs and back #60 ea 12/26/24
lubiprostone 8 mcg capsule 8 mcg PO DAILY Gastrointestinal Issue #30 caps 12/26/24
methocarbamol 500 mg tablet 500 mg PO Q8HPRN PRN muscle spasm #21 tabs 12/26/24
metoprolol tartrate 50 mg tablet 50 mg PO BID Blood Pressure #60 tabs 12/26/24
nicotine 21 mg/24 hr daily transdermal patch 1 patch transdermal DAILY Smoking Cessation #30 ea 12/26/24
oxycodone 5 mg capsule 5 mg PO Q4H PRN moderate/severe pain #20 caps 12/26/24
potassium chloride 20 mEq tablet,extended release 20 meq PO DAILY Supplement #30 tabs 12/26/24
prednisone 20 mg tablet 20 mg PO DAILY Anti-Inflammatory #30 tabs 12/26/24
tizanidine 4 mg tablet 4 mg PO DAILYPRN PRN muscle spasm #7 tabs 12/26/24
tramadol 50 mg tablet 50 mg PO Q6HPRN PRN moderate pain #20 tabs 12/26/24
Home Medication Changes
Pending Results: No
Total time spent discharging patient (in min): 41
== END 2024-12-26 19:15 | disposition home health service (06) | DRG 194 ==
LOC: 4 WEST ACU 23:11
PROVIDERS: Internal Medicine; Nurse Practitioner Family; Physician Assistant; ADMITTING PHYSICIAN Hospitalist; ATTENDING PHYSICIAN Internal Medicine; EMERGENCY PHYSICIAN Emergency Medicine; FAMILY PHYSICIAN Family Medicine
DX: J18.9 Pneumonia, unspecified organism (principal); I50.22 Chronic systolic (congestive) heart failure; I51.81 Takotsubo syndrome; J44.0 Chronic obstructive pulmonary disease with (acute) lower respiratory infection; Z68.1 Body mass index [BMI] 19.9 or less, adult; M06.9 Rheumatoid arthritis, unspecified; E03.9 Hypothyroidism, unspecified; F32.A Depression, unspecified; F41.9 Anxiety disorder, unspecified; I10 Essential (primary) hypertension; R63.6 Underweight; G89.29 Other chronic pain; K59.00 Constipation, unspecified; M81.0 Age-related osteoporosis without current pathological fracture; M94.0 Chondrocostal junction syndrome [Tietze]; Z87.891 Personal history of nicotine dependence; Z79.899 Other long term (current) drug therapy; Z79.890 Hormone replacement therapy; Z79.52 Long term (current) use of systemic steroids; Z79.83 Long term (current) use of bisphosphonates; Z88.8 Allergy status to other drugs, medicaments and biological substances; Z11.52 Encounter for screening for COVID-19
CPT/HCPCS: 71046; 71275; 74177; 80053; 81003; 81015; 83605; 83880; 84145; 84484; 85025; 85027; 87040; 87070; 87502; 87811; 93005; 93306; 96361; 96365; 96375; 97163; 97166; 99285; Q9967

== ENCOUNTER 2025-01-26 11:46 | Emergency (ER) | payer BC, MEDICARE, SELFPAY ==
[2025-01-26] VITALS (7 sets, daily range): BP systolic 112–156; BP diastolic 74–91
[2025-01-26 12:18] LABS: Hematocrit 33.4 % (37.0-47.0); Hemoglobin 10.4 g/dL (12.0-16.0); Mean Corp Hgb Conc. 31.1 g/dL (33.0-37.0); Mean Corpuscular Volume 96.3 fL (81.0-99.0); Platelet Count 306 10^3/uL (130-400); Red Blood Cell Count 3.47 10^6/uL (4.20-5.40); Red Cell Dist. Width 17.8 % (11.5-14.5); White Blood Cell Count 23.5 10^3/uL (4.8-10.8)
[2025-01-26 12:28] LABS: ALT (SGPT) 32 U/L (0-35); AST (SGOT) 32 U/L (14-36); Albumin 3.1 g/dl (3.5-5.0); Alkaline Phosphatase 133 U/L (38-126); Blood Urea Nitrogen 25 mg/dl (7-17); Calcium 8.6 mg/dl (8.4-10.2); Carbon Dioxide 30 mmol/L (22-30); Chloride 101 mmol/L (98-107); Glucose 139 mg/dl (70-99); Lipase 59 U/L (23-300); Potassium 4.8 mmol/L (3.5-5.1); Sodium 137 mmol/L (135-145); Total Bilirubin 0.7 mg/dl (0.2-1.3); Total Protein 5.6 g/dl (6.3-8.2); eGFR > 60.00
--- NOTE | 2025-01-26 13:09 | ED.GENMED ---
Addendum entered and electronically signed by Noah Holbrook DO 01/26/25 15:41:
Update reevaluated the patient now for third time, answered her questions the best my ability
Previously she was seen by GI placed on Linzess, which helped her, I reiterated the importance of following up with her GI doctor, she again asked about an ultrasound of her abdomen, again in light of her CAT scan finding I do not believe an
ultrasound would filter changer
Original Note:
History of Present Illness
General
Chief Complaint: Abdominal Symptoms
Source: patient
Exam Limitations: none
Time Seen by Provider: 01/26/25 12:44
Nursing documentation reviewed up to this point in time: agreed with
History of Present Illness
History of Present Illness:
64-year-old female presents with abdominal distention chronic issue
Abdominal pain, she has acute on chronic shortness of breath, is on chronic steroids she has osteoporosis she has had back surgery she is at a rehab apparently had COVID a few weeks ago no chest pain no trouble urinating no fevers, she has been
moving her bowels every day except for today, states her back pain is worse not getting much relief with tramadol
Past History
Past History
ED Past Medical History: COPD, HTN, Hyperthyroidism and Other
ED Past Surgical History: , Orthopedic and Other
Social History
Tobacco: Former smoker
Alcohol: None
Drug: None
Living: senior living
Employment: Retired
Review of Systems
Review of Systems
All Other Systems: Not applicable
Constitutional: Denies fever or fatigue
EENT: Reports no symptoms
Respiratory: Reports trouble breathing
Cardiac: Reports no symptoms
ABD/GI: Denies abdominal pain, diarrhea, constipated, bloody stools or black stools
Phy Exam
Physical Exam
Physical Exam:
Physical Exam
General: Nontoxic chronically ill-appearing
Neck: Lips are slightly
Heart: s1/s2 regular rate and rhythm, no murmur. equal radial pulses.
Lungs: no acute respiratory distress. clear bilaterally
Abdomen: Distended nontender
Neuro: alert and oriented. no focal neurological deficits
Skin: no rash
Psychiatric: well kept. interactive and cooperative
Extremities: no edema.
Course
Orders/Labs/Results
Orders:
Orders
01/26/25 11:53
Electrocardiogram (*1) Urgent
Reason for Study: Shortness of Breath
01/26/25 11:54
EKG- Treatment ONCE
01/26/25 12:02
Complete Blood Count/With Diff Urgent
Comprehensive Metabolic Panel Urgent
Lipase Urgent
01/26/25 13:03
CT Abd/pel Without Iv Or Oral Urgent
Comment:
Reason For Exam: distension
0.9% Sodium Chloride 1000 ml [Nss] 1,000 ml IV BOLUS
HYDROmorphone [Dilaudid] 1 mg IV NOW STA
Ondansetron Injectable [Zofran] 4 mg IV NOW STA
CR Chest - 2 Views Urgent
Comment:
Reason For Exam: sob
01/26/25 14:56
Lactulose [Duphalac/Chronulac] 20 grams PO NOW STA
Abnormal Lab Results
01/26/25
12:02
WBC 23.5 H 10^3/uL
(4.8-10.8)
RBC 3.47 L 10^6/uL
(4.20-5.40)
Hgb 10.4 L g/dL
(12.0-16.0)
Hct 33.4 L %
(37.0-47.0)
MCHC 31.1 L g/dL
(33.0-37.0)
RDW 17.8 H %
(11.5-14.5)
Abs Immat Gran (auto) 1.3 H 10^3/uL
(0-0.05)
Absolute Neuts (auto) 20.7 H 10^3/uL
(1.4-6.5)
Absolute Lymphs (auto) 0.7 L 10^3/uL
(1.2-3.4)
Absolute Monos (auto) 0.7 H 10^3/uL
(0.1-0.6)
Immature Gran % 5.3 H %
(0-0.5)
Neutrophils % 88.1 H %
(42.2-75.2)
Lymphocytes % 3.0 L %
(20.5-51.1)
BUN 25 H mg/dl
(7-17)
Creatinine 0.4 L mg/dL
(0.6-1.0)
Glucose 139 H mg/dl
(70-99)
Alkaline Phosphatase 133 H U/L
(38-126)
Total Protein 5.6 L g/dl
(6.3-8.2)
Albumin 3.1 L g/dl
(3.5-5.0)
01/26/25 12:02
01/26/25 12:02
Vital Signs
Initial and Last Documented VS:
Initial Vital Signs
Temp Pulse Resp BP Pulse Ox
98.3 F 110 16 112/76 98
01/26/25 11:51 01/26/25 11:51 01/26/25 11:51 01/26/25 11:51 01/26/25 11:51
Last Documented Vital Signs
Temp Pulse Resp BP Pulse Ox
98.3 F 93 16 156/89 96
01/26/25 11:51 01/26/25 14:38 01/26/25 14:43 01/26/25 14:38 01/26/25 13:30
MDM/Problems Addressed
Differential Diagnosis Includes:
Obstipation hernia infection colitis chronic pain pneumonia
MDM/Problems Addressed:
Abdominal swelling chronic abdominal
Chronic conditions affecting care: COPD and Previous abdomnial surgery
Acute Exacerbation and/or Progression of Chronic Illness: COPD and Previous abdomnial surgery
*Radiology
Radiology exam reviewed: preliminary read by ED provider
*Pulse Oximetry
Patient hypoxic: no
*EKG
Interpreted by ED Provider?: Yes
Interpretation: abnormal
Comparison EKG: no comparison EKG present
Heart Rate: 78
Rate: normal
Rhythm: sinus
Ischemia: non-specific ST changes
*Field Advisor Interpretation
Rate: normal
Interpretation: normal
Heart Rate: 99
Rhythm: sinus
*Critical Care Note
Total Time (30-74mins, 75-104mins- exclusive of procedures): Not Applicable
Update Note
Update Note:
3 PM update labs noted, chest x-ray noted does have leukocytosis although no infection in her chest or abdomen apparently,
Patient appears comfortable, reviewed her labs and CAT scan report with her she reminds me that she had an ultrasound ordered through her facility I do not see an indication to get an ultrasound of her abdomen because of her CAT scan findings, will
place her on bowel regiment, do not see any indication for admission
ED Attending Note
-
Portions of this chart may have been created with voice recognition software.� Occasional wrong word or��sound alike� substitutions may have occurred due to the inherent limitations of voice recognition software.
Discharge Plan
Departure
Patient Disposition: Home (Routine Discharge)
Date of Disposition: 01/26/25
Time of Disposition: 15:22
Patient with high blood pressure during this ER visit?: No
Condition: Good
Discharge Problem:
Abdominal distension
Instructions: Constipation, Adult (DC)
Prescriptions:
New
polyethylene glycol 3350 [Gavilax] 17 gram/dose powder
4 g PO DAILY Qty: 510 0RF
No Action
acetaminophen 325 mg Tablet
650 mg PO Q4HPRN PRN (Reason: fever greater than 100/mild pain)
sennosides-docusate sodium [Senna with Docusate Sodium] 8.6-50 mg Tablet
1 tab-cap PO HS
magnesium hydroxide [Milk of Magnesia] 400 mg/5 mL Suspension
2,400 mg PO DAILYPRN PRN (Reason: if no bm in 3 days)
calcium carbonate 500 mg calcium (1,250 mg) Tablet
500 mg PO DAILY
bisacodyl [Dulcolax (bisacodyl)] 10 mg Suppository
10 mg OR DAILYPRN PRN (Reason: if MOM ineffective after 24 hours)
Fleet Enema 19-7 gram/118 mL Enema
118 ml OR DAILYPRN PRN (Reason: if dulcolax ineffective after 24 hr)
doxycycline hyclate 100 mg Capsule
100 mg PO Q12 Qty: 16 0RF
cefdinir 300 mg capsule
300 mg PO BID Qty: 16 0RF
methocarbamol 500 mg Tablet
500 mg PO Q8HPRN PRN (Reason: muscle spasm) Qty: 21 0RF
lidocaine 4 % Adhesive Patch,Medicated
2 patch TOPICAL DAILY Qty: 60 0RF
albuterol sulfate 2.5 mg /3 mL (0.083 %) Solution For Nebulization
2.5 mg INHALATION R Q4HPRN PRN (Reason: sob) Qty: 75 0RF
tizanidine 4 mg Tablet
4 mg PO DAILYPRN PRN (Reason: muscle spasm) Qty: 7 0RF
prednisone 20 mg Tablet
20 mg PO DAILY Qty: 30 0RF
alendronate 70 mg Tablet
70 mg PO MO Qty: 3 0RF
tramadol 50 mg tablet
50 mg PO Q6HPRN PRN (Reason: moderate pain) Qty: 20 0RF
levothyroxine 100 mcg Tablet
100 mcg PO DAILY Qty: 30 0RF
oxycodone 5 mg Capsule
5 mg PO Q4H PRN (Reason: moderate/severe pain) Qty: 20 0RF
metoprolol tartrate 50 mg Tablet
50 mg PO BID Qty: 60 0RF
nicotine 21 mg/24 hr Patch 24 Hour
1 patch TRANSDERMAL DAILY Qty: 30 0RF
gabapentin 300 mg Capsule
300 mg PO TID Qty: 30 0RF
furosemide 20 mg Tablet
20 mg PO DAILY Qty: 30 0RF
lubiprostone 8 mcg Capsule
8 mcg PO DAILY Qty: 30 0RF
potassium chloride 20 mEq tablet extended release
20 meq PO DAILY Qty: 30 0RF
Referrals:
Otf Landers MD [Active] - Next open appointment
Daniel Manning DO [Family Provider] - Next open appointment
Interventions
Interventions:
*Risk Screen - Suicide Last Done: 01/26/25 12:15
*General Assessment Last Done: 01/26/25 12:15
*Neglect/Abuse Screening Last Done: 01/26/25 12:15
*ED COVID-19 Vaccine History Last Done: 01/26/25 12:15
UE-Unynsw-Kalnoxyfis Assessment Last Done: 01/26/25 11:50
Discharge Date and Time
Print Language: UZBEK
[2025-01-26] MEDS: DILAUDID 1 MG IV (13:21)
[2025-01-26] MEDS: ZOFRAN 4 MG IV (13:21)
[2025-01-26] MEDS: NSS 1000 IV (13:22)
[2025-01-26 13:36] LABS: % Basophils 0.6 % (0-2); % Eosinophils 0.1 % (0-6); % Immature Granulocytes 5.3 % (0-0.5); % Monocytes 2.9 % (1.7-9.3); % Neutrophils 88.1 % (42.2-75.2); Absolute Basophils 0.1 10^3/uL (0-0.2); Absolute Immature Granulocytes 1.3 10^3/uL (0-0.05); Absolute Lymphocytes 0.7 10^3/uL (1.2-3.4); Absolute Monocytes 0.7 10^3/uL (0.1-0.6); Absolute Neutrophils 20.7 10^3/uL (1.4-6.5); Nucleated Red Blood Cells % 0 %
[2025-01-26] MEDS: DUPHALAC/CHRONULAC 20 GRAMS PO (15:25)
== END 2025-01-26 19:10 | disposition home or self-care (01) ==
LOC: EMR 11:46
PROVIDERS: Emergency Medicine; EMERGENCY PHYSICIAN Emergency Medicine; FAMILY PHYSICIAN Family Medicine
DX: R14.0 Abdominal distension (gaseous) (principal); J44.9 Chronic obstructive pulmonary disease, unspecified; Z87.891 Personal history of nicotine dependence; I10 Essential (primary) hypertension
CPT/HCPCS: 99285; 96374; 96375; 96361; 71046; 74176; 80053; 83690; 85025; 93005

== ENCOUNTER 2025-05-01 18:09 | Emergency (ER) | payer BC, MEDICARE, SELFPAY ==
[2025-05-01 18:10] VITALS: BP 136/108
[2025-05-01 19:00] VITALS: BP 131/90
[2025-05-01 20:00] VITALS: BP 131/100
[2025-05-01] MEDS: TORADOL 15 MG IV (20:11)
[2025-05-01] MEDS: ZOFRAN 4 MG IV (20:41)
[2025-05-01] MEDS: DILAUDID 0.5 MG IV (20:41)
[2025-05-01 21:00] VITALS: BP 126/92
--- NOTE | 2025-05-02 00:09 | ED.GENMED ---
History of Present Illness
General
Chief Complaint: Back Pain
Source: patient
Exam Limitations: none
Time Seen by Provider: 05/01/25 19:37
Nursing documentation reviewed up to this point in time: agreed with
History of Present Illness
History of Present Illness:
Patient to ED [facility] complaint of chronicl low back pain. States she has severe DDD from many years of steroid use for RA. States pain continues to worsen. NO history of trauma. States she has an appointment to see Dr. Flores tomorrow for eval
for pain pump. States her pain medication is not working and she does not feel that she will be able to get to appointment due to pain. Brought to ED by friend for eval. No fever/chills, recent illness. No weakness inextremities, no bowel or
bladder symptoms, no saddle parethesia.
Past History
Past History
ED Past Medical History: COPD, HTN, Hyperthyroidism and Other
ED Past Surgical History: , Orthopedic and Other
Social History
Tobacco: Former smoker
Alcohol: None
Drug: None
Living: detention
Employment: Retired
Review of Systems
Review of Systems
All Other Systems: ROS reviewed and negative except as documented in HPI and ROS
Constitutional: Reports no symptoms
EENT: Reports no symptoms
Respiratory: Reports no symptoms
Cardiac: Reports no symptoms
ABD/GI: Reports no symptoms
: Reports no symptoms
Musculoskeletal: Reports back pain (chronic back pain)
Skin: Reports no symptoms
Neurological: Reports no symptoms
Psychiatric: Reports no symptoms
Phy Exam
General Physical Exam
General Presentation: moderate distress
General age: appears stated age
General Skin: warm and dry
General Habitus: normal
General Mental: alert
Cardiovascular Exam
Cardiovascular Exam: regular rate/rhythm and no edema
Gastrointestinal Exam
Gastrointestinal Exam: non tender and soft
Neurological Exam
Neurological Exam: alert, oriented x3, CN II-XII intact, no motor deficits, no sensory deficits and normal gait
Musculoskeletal Exam
Musculoskeletal Exam: back pain (chronic low back pain) and neuro vasc intact
Skin Exam
Skin Exam: normal color, warm/dry and no rash
Psychiatric Exam
Psychiatric Exam: normal mood/affect
Course
Orders/Labs/Results
Orders:
Orders
05/01/25 19:44
Ketorolac [Toradol] 15 mg IV NOW STA
05/01/25 20:31
HYDROmorphone [Dilaudid] 0.5 mg IV NOW STA
Ondansetron Injectable [Zofran] 4 mg IV NOW STA
Vital Signs
Initial and Last Documented VS:
Initial Vital Signs
Temp Pulse Resp BP Pulse Ox
97.9 F 100 20 136/108 97
05/01/25 18:10 05/01/25 18:10 05/01/25 18:10 05/01/25 18:10 05/01/25 18:10
Last Documented Vital Signs
Temp Pulse Resp BP Pulse Ox
97.9 F 93 20 126/92 93
05/01/25 18:10 05/01/25 21:54 05/01/25 21:54 05/01/25 21:00 05/01/25 21:45
*Critical Care Note
Total Time (30-74mins, 75-104mins- exclusive of procedures): Not Applicable
Update Note
Update Note:
Improved iwth IV dilaudid. Albe to ambulate safely. WIll give rx for 2 po doses and she will then follow up withDr. Flores tomorrow as scheduled.
ED Attending Note
-
Portions of this chart may have been created with voice recognition software.� Occasional wrong word or��sound alike� substitutions may have occurred due to the inherent limitations of voice recognition software.
Discharge Plan
Departure
Patient Disposition: Home (Routine Discharge)
Date of Disposition: 05/01/25
Time of Disposition: 21:52
Patient with high blood pressure during this ER visit?: No
Condition: Good
Covid-19: Not Applicable
Discharge Problem:
Back pain
Instructions: Low Back Pain (DC)
Prescriptions:
No Action
calcium carbonate 500 mg calcium (1,250 mg) Tablet
500 mg PO DAILY
albuterol sulfate 2.5 mg /3 mL (0.083 %) Solution For Nebulization
2.5 mg INHALATION R Q4HPRN PRN (Reason: sob) Qty: 75 0RF
alendronate 70 mg Tablet
70 mg PO MO Qty: 3 0RF
tramadol 50 mg tablet
50 mg PO Q6HPRN PRN (Reason: moderate pain) Qty: 20 0RF
levothyroxine 100 mcg Tablet
100 mcg PO DAILY Qty: 30 0RF
metoprolol tartrate 50 mg Tablet
50 mg PO BID Qty: 60 0RF
nicotine 21 mg/24 hr Patch 24 Hour
1 patch TRANSDERMAL DAILY Qty: 30 0RF
furosemide 20 mg Tablet
20 mg PO DAILY Qty: 30 0RF
potassium chloride 20 mEq tablet extended release
20 meq PO DAILY Qty: 30 0RF
hydromorphone 2 mg tablet
2 mg PO Q6H PRN (Reason: Pain) Qty: 8 0RF
prednisone 5 mg Tablet
5 mg PO DAILY
Referrals:
Antelmo Flores MD [Active, Anesthesiology] - Keep scheduled appt
Daniel Manning DO [Family Provider, Family Practice]
Activity Restrictions/Additional Instructions:
Follow up tomorrow with Dr. Flores as scheduled.
Interventions
Interventions:
*Risk Screen - Suicide Last Done: 05/01/25 18:11
*General Assessment Last Done: 05/01/25 18:12
*Neglect/Abuse Screening Last Done: 05/01/25 18:11
*ED- Fall Risk Assessment Last Done: 05/01/25 18:12
*ED COVID-19 Vaccine History Last Done: 05/01/25 18:12
*Nursing Disposition Last Done: 05/01/25 22:08
ED-Musculoskeletal Assessment Last Done: 05/01/25 18:12
Discharge Date and Time
Discharge Date/Time: 05/01/25 22:11
Print Language: TUNISIAN
Musculoskeletal Injury Exam
Musculoskeletal Injury Exam
Bilateral Lower Back:
Pain with Movement?: Moderate
Tender to palpation?: Moderate
Soft tissue swelling?: None
External deformity and angulation?: None
Joint effusion?: None
Contusion?: None
Hematoma-local bleeding into tissue?: None
Strain- Sprain- Tear (Connective tissue injury)?: None
Crepitus with movement?: No
Joint instability?: No
Malalignment/deformity?: No
Range of motion: Limited
Distal skin color and temperature: normal-warm & good color
Capillary Refill: normal
Normal distal neurovascular exam?: Yes
Peripheral Pulses: posterior tibial (left): 3+, posterior tibial (right): 3+, dorsalis pedis (left): 3+ and dorsalis pedis (right): 3+
== END 2025-05-01 22:11 | disposition home or self-care (01) ==
LOC: EMR 18:09
PROVIDERS: EMERGENCY PHYSICIAN Student in an Organized Health Care Education/Training Program; FAMILY PHYSICIAN Family Medicine
DX: M54.50 Low back pain, unspecified (principal); M06.9 Rheumatoid arthritis, unspecified; M51.369 Other intervertebral disc degeneration, lumbar region without mention of lumbar back pain or lower extremity pain; G43.909 Migraine, unspecified, not intractable, without status migrainosus; I42.9 Cardiomyopathy, unspecified; I10 Essential (primary) hypertension; I34.1 Nonrheumatic mitral (valve) prolapse; J44.9 Chronic obstructive pulmonary disease, unspecified; G89.29 Other chronic pain; M48.00 Spinal stenosis, site unspecified; F32.A Depression, unspecified; M19.90 Unspecified osteoarthritis, unspecified site; Z98.1 Arthrodesis status; Z87.440 Personal history of urinary (tract) infections; Z87.891 Personal history of nicotine dependence; Z88.8 Allergy status to other drugs, medicaments and biological substances
CPT/HCPCS: 99284; 96374; 96375 ×2

== ENCOUNTER 2025-05-03 17:55 | Observation (INO) | payer BC, MEDICARE, SELFPAY ==
[2025-05-03] VITALS (7 sets, daily range): BP systolic 105–168; BP diastolic 70–108; BMI 18.1; BMI 18.8
[2025-05-03] MEDS: DILAUDID 2 MG PO ×3 (12:21→21:23)
--- NOTE | 2025-05-03 12:50 | ED.GENMED ---
History of Present Illness
General
Chief Complaint: Back Pain
Time Seen by Provider: 05/03/25 11:53
History of Present Illness
History of Present Illness:
65-year-old female with history of COPD, cardiomyopathy, hypertension, and chronic low back pain presents to the emergency department for intractable pain. She was seen here 2 days ago and given a small bridge prescription of hydromorphone until
she followed up with her pain specialist. She saw pain specialist and was scheduled for an epidural this upcoming Wednesday however due to severe pain she canceled this appointment. She is not prescribed any chronic opiates by her pain specialist,
most recently was offered Belbuca however did not tolerate this. Apparently her primary prescriber will not offer her meds as well. States she has been told she is not a surgical candidate due to poor bone density secondary to chronic steroid use
for rheumatoid arthritis.
Past History
Past History
ED Past Medical History: COPD, HTN, Hyperthyroidism and Other
ED Past Surgical History: , Orthopedic and Other
Social History
Tobacco: Former smoker
Alcohol: None
Drug: None
Living: snf
Employment: Retired
Review of Systems
Review of Systems
Allergies reviewed?: Yes
All Other Systems: ROS reviewed and negative except as documented in HPI and ROS
Phy Exam
Physical Exam
Physical Exam:
GEN: Chronically ill-appearing, no immediate distress
HEENT: Oral mucosa moist, no scleral icterus
Cardiac: Regular rate
Lung: Tachypnea at baseline
MSK: No gross deformity or injuries
Skin: Good color, no pallor or jaundice, no rashes
Neuro: AO x3, moves all extremities freely
Psych: Calm, cooperative
Course
Orders/Labs/Results
Orders:
Orders
05/03/25 12:09
HYDROmorphone [Dilaudid] 2 mg PO NOW STA
05/03/25 14:37
HYDROmorphone [Dilaudid] 2 mg PO NOW STA
05/03/25 15:19
Acetaminophen 1000MG/100Ml [Ofirmev] 1,000 mg in 100 ml IV ONCE
Acetaminophen IV Indication:: ED Narcotic History-ONCE
Lidocaine [Lidocaine 4% Patch] 1 patch TOPICAL NOW STA
Apply Lidocaine patch(s) to:: low back
05/03/25 15:51
Basic Metabolic Panel Urgent
Complete Blood Count/No Diff Urgent
05/03/25 16:07
Tizanidine [Zanaflex] 4 mg PO NOW STA
05/03/25 17:42
Admit/Transfer Patient As Directed
Co-Sign Provider:
Level of Care: Observation services
Assign to:: Medical/Surgical
Physician / Group: Annie Reyes
Diagnosis: acute on chronic low back pain
PRN Pain Medication Management As Directed
May give lesser potent ordered pain med per pt: Yes
preference::
Protocol:: Medication orders for pain may be administered in a
manner that supports deferring to patient preference
when the pt is:
- Requesting an ordered lesser potent pain medication.
Least to most potent pain medications are defined
as: acetaminophen < NSAID < tramadol < opioids
(morphine, oxycodone, hydromorphone).
- Requesting a lesser dose of the same medication IF
ORDERED.
- Requesting a less intrusive route of administration
if both routes are prescribed by the provider (PO <
IV).
05/03/25 17:43
Code Status As Directed
Resuscitation Status: Full Code
Abnormal Lab Results
05/03/25
15:51
WBC 11.2 H 10^3/uL
(4.8-10.8)
RDW 16.2 H %
(11.5-14.5)
Chloride 97 L mmol/L
(98-107)
Carbon Dioxide 31 H mmol/L
(22-30)
BUN 20 H mg/dl
(7-17)
Creatinine 0.5 L mg/dL
(0.6-1.0)
05/03/25 15:51
05/03/25 15:51
Vital Signs
Initial and Last Documented VS:
Initial Vital Signs
Temp Pulse Resp BP Pulse Ox
98.1 F 126 20 130/85 98
05/03/25 10:19 05/03/25 10:19 05/03/25 10:19 05/03/25 10:19 05/03/25 10:19
Last Documented Vital Signs
Temp Pulse Resp BP Pulse Ox
97.7 F 110 20 125/91 95
05/03/25 18:00 05/03/25 18:00 05/03/25 18:00 05/03/25 18:00 05/03/25 18:00
MDM/Problems Addressed
MDM/Problems Addressed:
At this time patient is essentially options for pain control as her pain specialist appointment was canceled and her primary care physician will not prescribe her any further opiates. It also appears that she is not able to fill any further opiates
from outpatient pharmacies due to frequent misuse. That said she does have significant lumbar spine disease and clearly has poor functional status due to pain. She is not a safe discharge as a result and will be admitted for pain control and CM
consultation. I have advised her she will not receive parenteral opiates in the hospital
*Critical Care Note
Total Time (30-74mins, 75-104mins- exclusive of procedures): Not Applicable
ED Attending Note
-
Portions of this chart may have been created with voice recognition software.� Occasional wrong word or��sound alike� substitutions may have occurred due to the inherent limitations of voice recognition software.
Discharge Plan
Departure
Patient Disposition: Admit
Date of Disposition: 05/03/25
Time of Disposition: 16:45
Presentation/result/management discussed w/ accepting MD/DO: Hospitalist
Patient with high blood pressure during this ER visit?: Yes
Discharge Problem:
Chronic back pain, Intractable back pain
Interventions
Interventions:
*Risk Screen - Suicide Last Done: 05/03/25 10:19
*General Assessment Last Done: 05/03/25 11:34
*Neglect/Abuse Screening Last Done: 05/03/25 10:19
*ED- Fall Risk Assessment Last Done: 05/03/25 11:34
*ED COVID-19 Vaccine History Last Done: 05/03/25 11:34
ED-Musculoskeletal Assessment Last Done: 05/03/25 11:34
[2025-05-03 15:58] LABS: Hematocrit 40.2 % (37.0-47.0); Hemoglobin 13.6 g/dL (12.0-16.0); Mean Corp Hgb Conc. 33.8 g/dL (33.0-37.0); Mean Corpuscular Hgb 27.4 pg (27.0-31.0); Mean Platelet Volume 9.9 fL (7.4-10.4); Platelet Count 225 10^3/uL (130-400); Red Blood Cell Count 4.96 10^6/uL (4.20-5.40); Red Cell Dist. Width 16.2 % (11.5-14.5); White Blood Cell Count 11.2 10^3/uL (4.8-10.8)
[2025-05-03 16:14] LABS: Blood Urea Nitrogen 20 mg/dl (7-17); Carbon Dioxide 31 mmol/L (22-30); Chloride 97 mmol/L (98-107); Estimated Creatinine Clearance 69 ml/min; Glucose 83 mg/dl (70-99); Sodium 135 mmol/L (135-145); eGFR > 60.00
[2025-05-03] MEDS: LIDOCAINE 4% PATCH 1 PATCH TOPICAL (16:27)
[2025-05-03] MEDS: ZANAFLEX 4 MG PO (16:27)
[2025-05-03] MEDS: OFIRMEV 100 IV (16:28)
--- NOTE | 2025-05-03 17:12 | HPS.HSE ---
Family Physician
-
Family Physician: Daniel Manning
Chief Complaint
-
intractable low back pain
History of Present Illness
Mr. Dina Braga is a 65 yo woman with hx COPD, cardiomyopathy, HF with recovered EF (EF 55-60% 12/23) essential HTN, chronic low back pain presents to the ER with significant pain. Patient was seen in the ER 2 days ago s/p script for Dilaudid to
bridge to pain specialist appointment. Patient saw Dr. Flores yesterday who discussed EVA which is scheduled for Wednesday. If this doesn't work they discussed continuous infusion.
Patient denies fevers/chills. No chest pain or shortenss of breath. No nausea/vomiting/diarrhea. She is eating and drinking OK.
Patient denies bowel/bladder changes. No saddle anesthesia. She has chronic weakness b/l LE, not worse recently.
She states the Tramadol and Nicholson didn't help at home. She tried Belbuca (buprenorphine) which was described but it made her feel sick.
She uses a walker at home.
Medical History
Past Medical History
Past Medical History: Reports Other (Takotsubo cardiomyopathy, HFrEF with recovered EF on most recent TTE, esophageal candidiasis, rheumatoid arthritis, COPD, hypothyroidism)
Past Surgical History: Reports Other (, Orthopedic and Other)
Social History
Tobacco: Former Smoker
Alcohol: None
Drug: None
Family History
Family History: Not pertinent
Allergies / Home Medications
Allergies reflects when Allergies were last updated in [employer]
Home Medications with original date entered in [employer]
Allergy/Medication List:
Allergies
Allergy/AdvReac Type Severity Reaction Status Date / Time
abaloparatide (From Tymlos) Allergy rash, Verified 05/03/25 10:21
tachycardia,
chest
tightness,
headache
Home Medications
calcium carbonate 500 mg PO DAILY Supplement 12/23/24
albuterol sulfate 2.5 mg/3 mL (0.083 %) solution for nebulization 2.5 mg (3 mL) inhalation R Q4HPRN PRN sob #75 mL 12/26/24
alendronate 70 mg tablet 70 mg PO MO BONE HEALTH #3 tabs 12/26/24
furosemide 20 mg tablet 20 mg PO DAILY Fluid Retention/Swelling #30 tabs 12/26/24
levothyroxine 100 mcg tablet 100 mcg PO DAILY Thyroid #30 tabs 12/26/24
metoprolol tartrate 50 mg tablet 50 mg PO BID Blood Pressure #60 tabs 12/26/24
nicotine 21 mg/24 hr daily transdermal patch 1 patch transdermal DAILY Smoking Cessation #30 ea 12/26/24
potassium chloride 20 mEq tablet,extended release 20 meq PO DAILY Supplement #30 tabs 12/26/24
tramadol 50 mg tablet 50 mg PO Q6HPRN PRN moderate pain #20 tabs 12/26/24
hydromorphone 2 mg tablet 2 mg PO Q6H PRN Pain #8 tabs 05/03/25
prednisone 5 mg tablet 5 mg PO DAILY 05/03/25
Review of Systems
-
History Source: Patient
A 12 point ROS was completed and negative except as noted: Yes
Physical Exam
Vital Signs
Vital Signs
Temp Pulse Resp BP Pulse Ox
98.1 F 116 20 168/93 99
05/03/25 10:19 05/03/25 14:23 05/03/25 14:23 05/03/25 14:23 05/03/25 14:23
Physical Exam
General: No Apparent Distress
HEENT: PERRLA
Respiratory: Clear; No Wheezes
Cardiac: S1/S2 and Regular Rhythm
GI: Soft and Non Tender
Musculoskeletal: No Edema
Skin: Other (diffuse skin bruising, chronic from steroid use)
Neuro: AO x 3
Psych: Calm
Laboratory Results
-
05/03/25 15:51
05/03/25 15:51
Data Reviewed
-
Diagnostic Radiology: Report Reviewed by me
Lab Data: Labs Reviewed by me
Impression/Plan
-
Mr. Dina Braga is a 65 yo woman with hx COPD, cardiomyopathy, HF with recovered EF (EF 55-60% 12/23) essential HTN, chronic low back pain, RA presents to the ER with significant niecy. Patient was seen in the ER 2 days ago s/p script for Dilaudid
to bridge to pain specialist appointment.
Triage VS: T 98.1, P 126, RR 20, BP 130/85, SpO2 98%
LABS: WBC 11.2, Hg 13.6, PLT 225, Na 135, Cl 97, BUN 20, Cr 0.5, Glucose 83
MAR: Dilaudid 2mg PO x 2, tylenol, Lidocaine patch, Zanaflex
Acute on chronic back pain
Spinal Stenosis
Compression Fractures
Hx Lumbar 5-6 fusion
Hx Opiate Use
-admit to medicine/observation
-Patient had stopped taking Gabapentin, willing to start again at lower dose. Will start with 300mg PO qhs
-continue Lidocaine patch, schedule Tylenol
-LICENSED PROFESSIONAL COUNSELOR Tramadol PRN moderate pain; Dilaudid 2mg PRN severe pain
-I have asked IR to evaluate to see if patient can get EVA while here in hospital
-PT/OT
-team to consider discussing case with patient's pain specialist, Dr. Flores, tomorrow
Hypothyroidism - LICENSED PROFESSIONAL COUNSELOR Synthroid
HF with recovered EF - LICENSED PROFESSIONAL COUNSELOR Lasix
Essential HTN - LICENSED PROFESSIONAL COUNSELOR Metoprolol 50 BID
RA - LICENSED PROFESSIONAL COUNSELOR daily prednisone 5mg PO QD
DVT PPx - SCD, while awaiting decision on EVA
FULL CODE
[2025-05-03] MEDS: NEURONTIN 300 MG PO (21:23)
[2025-05-03] MEDS: LOPRESSOR 50 MG PO (21:23)
[2025-05-03] MEDS: ZOFRAN 4 MG IV (21:48)
[2025-05-03] MEDS: ULTRAM 50 MG PO (23:22)
[2025-05-04 05:51] LABS: Hematocrit 35.7 % (37.0-47.0); Hemoglobin 11.5 g/dL (12.0-16.0); Mean Corp Hgb Conc. 32.2 g/dL (33.0-37.0); Mean Corpuscular Hgb 27.4 pg (27.0-31.0); Mean Corpuscular Volume 85.2 fL (81.0-99.0); Mean Platelet Volume 8.5 fL (7.4-10.4); Platelet Count 352 10^3/uL (130-400); Red Blood Cell Count 4.19 10^6/uL (4.20-5.40); Red Cell Dist. Width 15.9 % (11.5-14.5); White Blood Cell Count 10.3 10^3/uL (4.8-10.8)
[2025-05-04] MEDS: SYNTHROID 100 MCG PO (06:03)
[2025-05-04] MEDS: DILAUDID 2 MG PO ×3 (06:03→17:54)
[2025-05-04 06:06] LABS: Blood Urea Nitrogen 18 mg/dl (7-17); Calcium 8.2 mg/dl (8.4-10.2); Carbon Dioxide 31 mmol/L (22-30); Chloride 101 mmol/L (98-107); Estimated Creatinine Clearance 71 ml/min; Glucose 78 mg/dl (70-99); Magnesium 2.1 mg/dl (1.6-2.3); Sodium 132 mmol/L (135-145); eGFR > 60.00
[2025-05-04 06:33] VITALS: BMI 17.6
[2025-05-04 07:29] VITALS: BP 118/68
[2025-05-04 08:19] LABS: INR 0.96; PT 13.1 Sec (11.4-14.6)
[2025-05-04 09:04] VITALS: BP 121/65; BP 93/63; PULSE 100; O2SAT 94
[2025-05-04 09:05] VITALS: BP 106/67; BP 121/65; PULSE 99; O2SAT 95
[2025-05-04] MEDS: TYLENOL 1000 MG PO ×2 (09:07→15:24)
[2025-05-04] MEDS: LASIX 20 MG PO (09:07)
[2025-05-04] MEDS: DELTASONE 5 MG PO (09:07)
[2025-05-04] MEDS: LIDOCAINE 4% PATCH 1 PATCH TOPICAL (09:08)
[2025-05-04] MEDS: KCL 20 MEQ PO (09:08)
[2025-05-04] MEDS: LOPRESSOR 50 MG PO ×2 (09:09→21:12)
[2025-05-04 10:36] VITALS: BMI 17.6
[2025-05-04] MEDS: KCL 40 MEQ PO (13:34)
[2025-05-04] MEDS: ZOFRAN 4 MG IV (13:35)
--- NOTE | 2025-05-04 14:19 | W.PN.HOSP.TC ---
Today's Communication/Plan
-
Assessment / Plan
Assessment / Plan
General: No Apparent Distress, Comfortable and Conversant
HEENT: NormoCephalic, Moist mucous membranes, Atraumatic
Respiratory: Clear and Non Labored Respirations
Cardiac: S1/S2 and Regular Rhythm; No Rub or Gallop
GI: Soft, Non Tender, Non Distended and Normal Bowel Sounds
Musculoskeletal: No Edema, no deformity
Skin: Warm and dry
: NO Ozuna
Neuro: Awake, Alert, Nonfocal/grossly intact
Psych: Calm and Intact Judgment/Insight
Ms. Braga is a 65-year-old female with a medical history of cardiomyopathy (Takotsubo's, recovered EF), COPD, hypothyroidism, rheumatoid arthritis, and chronic back pain (multiple compression fractures and spinal surgeries, follows outpatient with a
pain specialist Dr. Antelmo Flores) who presented with back pain after running out of home pain medications. She reports taking her opiate pain medication more frequently than prescribed by her pain management team. She reports planned follow-up
with her sandblaster paint sprayer on Wednesday but just needs enough pain medication to bridge her until she is able to make that appointment. Patient reports further complication of pharmacies being unwilling to fill her prescriptions due to her
inappropriate overuse of her medications. However, patient's daughter reports that the patient's pain management team is recommending drug rehab and is in the process of de-escalating and ultimately discontinuing her pain medication.
Opiate withdrawal:
- Patient appears to be experiencing withdrawal from her opiate pain medications
- Family reports patient's pain management team is recommending drug rehab and planning to de-escalate and ultimately discontinue her pain medications
- Case management working on drug rehab placement
- Currently continuing home pain medication regimen
Chronic back pain:
- Due to chronic degenerative joint disease, spinal stenosis, multiple compression fractures
- Status post multiple spinal surgeries including kyphoplasty and L5-6 fusion
- Continuing home opiate pain medication regimen with as needed tramadol and p.o. Dilaudid, added gabapentin and lidocaine patch
- Not a good candidate for EVA
Hypokalemia:
- Potassium 3.0
- Replete with 40 mEq p.o. in addition to scheduled 20 mEq daily
- Monitor
Rheumatoid arthritis:
- Continue low-dose prednisone daily
Hypothyroidism:
- Continue levothyroxine 100 mcg daily
Cardiomyopathy:
- Takotsubo's, recovered EF
- Continue beta-blockade with metoprolol tartrate 50 g p.o. twice daily
- Lasix 20 mg p.o. daily
DVT prophylaxis: SCDs
CODE STATUS: Full code
Total time spent on today's encounter was 45 minutes
Anticipated Discharge: 24 - 48 hours
Subjective/Interval History
-
Date of Service: May 04, 2025
Patient was seen and examined at bedside this morning. Admits to drug-seeking behavior for relief of back pain which is chronic and opiate withdrawal now that she has run out of home pain medications.
Objective Data
-
Labs:
Laboratory Results
05/04/25 05/04/25
05:10 07:44
WBC 10.3
Hgb 11.5 L
Hct 35.7 L
Plt Count 352 D
PT 13.1
INR 0.96
Sodium 132 L
Potassium 3.0 L
Chloride 101
Carbon Dioxide 31 H
BUN 18 H
Creatinine 0.5 L
Glucose 78
Calcium 8.2 L
Vital Signs:
Vital Signs
Temp Pulse Resp BP Pulse Ox
98.8 F 95 17 118/68 96
05/04/25 07:29 05/04/25 07:29 05/04/25 07:29 05/04/25 07:29 05/04/25 07:29
Review of Systems
-
History Source: Patient
All other systems: Reviewed and negative
Musculoskeletal: Reports Joint Pain (Back pain)
Physical Exam
-
General: No Apparent Distress
[2025-05-04] MEDS: ULTRAM 50 MG PO ×2 (15:24→21:25)
[2025-05-04 15:25] VITALS: BP 106/61
--- NOTE | 2025-05-04 17:12 | CM ---
Alert awake oriented patient who lives alone in a 2 story home with 2 steps to enter and 14 steps to bed/bathroom but she lives on first floor. She is independent in activates of daily living but waits for a shower when someone is present..She does
not drive .She uses a walker .MILLARD reviewed with pt and signed on chart.
PT said she need opiates for pain. she said she can no longer get pain meds for [facility]. MD ordered [facility] for inpatient drug rehab. [facility] said they offered in patient and pt refused.Pt has pain management MD . She said she has an back
injection at pain management MD on Wednesday
[facility] in past [facility]
Pharmacy [facility]
PCP Dr Manning
PLAN Dc plan ongoing.
[2025-05-04] MEDS: NEURONTIN 300 MG PO (21:16)
[2025-05-04 23:40] VITALS: BP 106/70
[2025-05-05] MEDS: TYLENOL 1000 MG PO ×2 (00:15→07:51)
[2025-05-05] MEDS: SYNTHROID 100 MCG PO (05:44)
[2025-05-05 07:10] VITALS: BP 132/88
[2025-05-05] MEDS: LOPRESSOR 50 MG PO (07:50)
[2025-05-05] MEDS: KCL 20 MEQ PO (07:51)
[2025-05-05] MEDS: LASIX 20 MG PO (07:51)
[2025-05-05] MEDS: DELTASONE 5 MG PO (07:51)
[2025-05-05] MEDS: LIDOCAINE 4% PATCH 1 PATCH TOPICAL (07:51)
[2025-05-05] MEDS: ULTRAM 50 MG PO ×2 (08:30→15:07)
--- NOTE | 2025-05-05 11:57 | W.DCSUMMARY ---
Discharge Summary
Discharge Data
Date of Admission: 05/03/25
Date of Discharge: 05/05/25
Total time spent discharging patient (in min): 45
-
Pending Results: No
Hospital Course
Ms. Braga is a 65-year-old female with a medical history of cardiomyopathy (Takotsubo's, recovered EF), COPD, hypothyroidism, rheumatoid arthritis, and chronic back pain (multiple compression fractures and spinal surgeries, follows outpatient with a
pain specialist Dr. Antelmo Flores) who presented with back pain after running out of home pain medications. She reports taking her opiate pain medication more frequently than prescribed by her pain management team. She reports planned follow-up
with her paint roller cover machine setter on Monday 05/07 but just needs enough pain medication to bridge her until she is able to make that appointment. Patient reports further complication of pharmacies being unwilling to fill her prescriptions due to
her inappropriate overuse of her medications. Discussed plan with patient and family who have good contact with paint roller cover machine setter. Patient does have an appointment on Wednesday for possible epidural spinal injection. Tramadol prescription
called to [facility] and confirmed they were able to fill the prescription and that the family was able to fiber picker the prescription prior to patient being discharged. She will be discharged to home with outpatient pain management follow-up.
She received oral potassium chloride during her admission for hypokalemia and should have repeat lab work in the outpatient setting with her PCP for ongoing monitoring of her electrolytes. She was medically stable at time of hospital discharge.
General: No Apparent Distress, Comfortable and Conversant
HEENT: NormoCephalic, Moist mucous membranes, Atraumatic
Respiratory: Clear and Non Labored Respirations
Cardiac: S1/S2 and Regular Rhythm; No Rub or Gallop
GI: Soft, Non Tender, Non Distended and Normal Bowel Sounds
Musculoskeletal: No Edema, no deformity
Skin: Warm and dry
: NO Ozuna
Neuro: Awake, Alert, Nonfocal/grossly intact
Psych: Calm and Intact Judgment/Insight
Discharge Plan
-
Patient Disposition: Home (Routine Discharge)
Discharge Diagnosis/Procedures: Back pain
Diet: No restrictions
Activity: As tolerated
Activity Restrictions/Additional Instructions:
Ms. Braga is a 65-year-old female with a medical history of cardiomyopathy (Takotsubo's, recovered EF), COPD, hypothyroidism, rheumatoid arthritis, and chronic back pain (multiple compression fractures and spinal surgeries, follows outpatient with a
pain specialist Dr. Antelmo Flores) who presented with back pain after running out of home pain medications. She reports taking her opiate pain medication more frequently than prescribed by her pain management team. She reports planned follow-up
with her paint roller cover machine setter on Monday 05/07 but just needs enough pain medication to bridge her until she is able to make that appointment. Patient reports further complication of pharmacies being unwilling to fill her prescriptions due to
her inappropriate overuse of her medications. Discussed plan with patient and family who have good contact with paint roller cover machine setter. Patient does have an appointment on Wednesday for possible epidural spinal injection. Tramadol prescription
called to [facility] and confirmed they were able to fill the prescription and that the family was able to fiber picker the prescription prior to patient being discharged. She will be discharged to home with outpatient pain management follow-up.
She received oral potassium chloride during her admission for hypokalemia and should have repeat lab work in the outpatient setting with her PCP for ongoing monitoring of her electrolytes. She was medically stable at time of hospital discharge.
Referrals:
Daniel Manning DO [Family Provider, [facility]]
Prescriptions:
New
lidocaine 4 % Adhesive Patch,Medicated
1 patch topical DAILY Qty: 5 0RF
tramadol 50 mg Tablet
50 mg PO Q6HPRN PRN (Reason: moderate pain) Qty: 15 0RF
gabapentin 300 mg Capsule
300 mg PO HS Qty: 5 0RF
acetaminophen [Tylenol Extra Strength] 500 mg Tablet
1,000 mg PO Q8H 3 Days Qty: 18 0RF
Continued
calcium carbonate 500 mg calcium (1,250 mg) Tablet
500 mg PO DAILY
albuterol sulfate 2.5 mg /3 mL (0.083 %) Solution For Nebulization
2.5 mg INHALATION R Q4HPRN PRN (Reason: sob) Qty: 75 0RF
alendronate 70 mg Tablet
70 mg PO MO Qty: 3 0RF
levothyroxine 100 mcg Tablet
100 mcg PO DAILY Qty: 30 0RF
metoprolol tartrate 50 mg Tablet
50 mg PO BID Qty: 60 0RF
nicotine 21 mg/24 hr Patch 24 Hour
1 patch TRANSDERMAL DAILY Qty: 30 0RF
furosemide 20 mg Tablet
20 mg PO DAILY Qty: 30 0RF
potassium chloride 20 mEq tablet extended release
20 meq PO DAILY Qty: 30 0RF
prednisone 5 mg Tablet
5 mg PO DAILY
Discontinued
tramadol 50 mg tablet
50 mg PO Q6HPRN PRN (Reason: moderate pain) Qty: 20 0RF
Discharge Orders:
Discharge Patient (As Directed); Ordered 05/05/25
Ordered By: George Gonzalez
Discharge Date and Time
Print Language: MONGOLIAN
[2025-05-05 11:58] LABS: Blood Urea Nitrogen 28 mg/dl (7-17); Calcium 9.3 mg/dl (8.4-10.2); Carbon Dioxide 33 mmol/L (22-30); Chloride 100 mmol/L (98-107); Estimated Creatinine Clearance 67 ml/min; Glucose 201 mg/dl (70-99); Potassium 4.5 mmol/L (3.5-5.1); Sodium 135 mmol/L (135-145); eGFR > 60.00
--- NOTE | 2025-05-05 13:29 | PTCARENOTE ---
Pt discharge order in and completed by this RN. Pt. states understanding with discharge plan and has no further questions. Pt. planned to be transported home by her daughter, however pt. daughter came out to the nurses station and said 'I want
nothing to do with getting her home'. Pt. daughter did pharmacy picking technician the prescription ordered for the pt. and dropped it off at the nurses station and said 'I am giving this to you because I don't trust her to hold on to it'. CM and provider updated on
d/c situation. Pt. attempting to find a ride home, but unsuccessful so far. CM to call daughter.
[2025-05-05] MEDS: TYLENOL PO (15:07)
[2025-05-05 15:31] VITALS: BP 129/84
--- NOTE | 2025-05-05 16:18 | CM ---
CM met with Dina to provide support and resources for substance abuse rehab services. Today she seems determined to get off the narcotics, and is hopeful that the injection she is scheduled for on Wednesday will help start the process. I advised
her to speak with her pain management doctor about suggestions for Substance Abuse Rehab facilities, as he may have experience with other patients who have been in the same situation.
Plan: Dian is returning home today via a friend. Will seek inpatient substance abuse rehab admission.
== END 2025-05-05 16:23 | disposition home or self-care (01) ==
LOC: 3 WEST ACU 17:55
PROVIDERS: Physician Assistant; Radiology Diagnostic Radiology; ADMITTING PHYSICIAN Student in an Organized Health Care Education/Training Program; ATTENDING PHYSICIAN Internal Medicine; EMERGENCY PHYSICIAN Emergency Medicine; FAMILY PHYSICIAN Family Medicine
DX: M54.50 Low back pain, unspecified (principal); Z87.891 Personal history of nicotine dependence; E03.9 Hypothyroidism, unspecified; I50.42 Chronic combined systolic (congestive) and diastolic (congestive) heart failure; I11.0 Hypertensive heart disease with heart failure; M06.9 Rheumatoid arthritis, unspecified; F11.23 Opioid dependence with withdrawal; G89.29 Other chronic pain; E87.6 Hypokalemia
CPT/HCPCS: 80048; 83735; 85027; 85610; 93005; 96374; 97163; 97167; 99284; G0378